=== PATIENT | male | born 1975 | race Hispanic/Latino ===

== ENCOUNTER 2019-06-22 03:06 | Emergency (ER) | payer SELFPAY ==
[~2019-06-22] VITALS: Ht 165.1 cm; Wt 56.7 kg
[2019-06-22] MEDS ORDERED: CLINDAMYCIN 600 MG/D5% WATER 50 ML IV ONE (04:44)
[2019-06-22] MEDS ORDERED: TETANUS/DIPHTHERIA TOXOID [ADULT] 0.5 ML VIAL IM ONE (04:45)
[2019-06-22] MEDS ORDERED: SODIUM CHLORIDE 0.9% 1000ML 1,000 ML IV ONE (04:47)
[2019-06-22 04:52] LABS: BASOPHILS % (AUTO) 1.1 % (0.0-5.0); EOSINOPHILS % (AUTO) 0.6 % (0.0-8.0); HEMATOCRIT 38.8 % (42-54); LYMPHOCYTES % (AUTO) 19.5 % (21.0-51.0); MEAN CORPUSCULAR HEMOGLOBIN 32.2 pg (27.0-33.0); MEAN CORPUSCULAR HGB CONC 35.2 g/dL (32.0-36.0); MEAN CORPUSCULAR VOLUME 91.5 fL (79-99); MONOCYTES % (AUTO) 9.2 % (3.0-13.0); NEUTROPHILS % (AUTO) 69.6 % (40.0-77.0); NUCLEATED RED BLOOD CELLS 0.2 % (0.0-0.19); PLATELET COUNT (AUTO) 267 K/uL (130-400); RED BLOOD CELL COUNT(AUTO) 4.24 MIL/uL (4.50-6.20); RED CELL DISTRIBUTION WIDTH 13.6 % (11.0-15.5)
[2019-06-22 05:15] LABS: CREATININE 0.6 mg/dL (0.5-1.5); POTASSIUM 3.5 mmol/L (3.5-5.1)
[2019-06-22] MEDS ORDERED: RABIES VACC, HUMAN DIPLOID/PF 2.5 UNIT ML IM SCH (09:15)
== END 2019-06-22 10:42 | disposition home or self-care (01) ==
LOC: EDH 03:06
DX: S41.132A Puncture wound without foreign body of left upper arm, initial encounter (principal); F10.129 Alcohol abuse with intoxication, unspecified; I10 Essential (primary) hypertension; Z72.0 Tobacco use; W54.0XXA Bitten by dog, initial encounter; Y93.89 Activity, other specified; Y92.488 Other paved roadways as the place of occurrence of the external cause; Y99.8 Other external cause status; Y90.9 Presence of alcohol in blood, level not specified
CPT/HCPCS: 36415; 73060; 80048; 85025; 90471; 90472; 90714; 96365; 99285; G0480; J3490; J7030

== ENCOUNTER 2020-10-22 16:08 | Inpatient (IN) | payer OTHER ==
[~2020-10-22] VITALS: Ht 167.6 cm; Wt 69.7 kg
[2020-10-22] MEDS ORDERED: FUROSEMIDE 10 MG/ML 4ML VIAL ONE (16:41)
[2020-10-22] MEDS ORDERED: ALBUTEROL INHALER 90MCG/INH IH ONE (16:41)
[2020-10-22 16:42] LABS: BASOPHILS % (AUTO) 0.4 % (0.0-5.0); EOSINOPHILS % (AUTO) 0.2 % (0.0-8.0); HEMATOCRIT 38.4 % (42-54); LYMPHOCYTES % (AUTO) 10.3 % (21.0-51.0); MEAN CORPUSCULAR HGB CONC 34.6 g/dL (32.0-36.0); MEAN CORPUSCULAR VOLUME 86.5 fL (79-99); MONOCYTES % (AUTO) 6.8 % (3.0-13.0); NEUTROPHILS % (AUTO) 81.4 % (40.0-77.0); PLATELET COUNT (AUTO) 256 K/uL (130-400); RED BLOOD CELL COUNT(AUTO) 4.44 MIL/uL (4.50-6.20); RED CELL DISTRIBUTION WIDTH 13.8 % (11.0-15.5); WHITE BLOOD COUNT (AUTO) 9.6 K/uL (4.8-10.8)
[2020-10-22 16:53] LABS: CREATININE 1.8 mg/dL (0.5-1.5); POTASSIUM 3.5 mmol/L (3.5-5.1)
[2020-10-22 16:54] LABS: INR 1.54 (0.85-1.15); PROTHROMBIN TIME 16.1 SEC (9.6-11.6)
[2020-10-22 16:55] LABS: PARTIAL THROMBOPLASTIN TIME 25.1 SEC (26.3-35.5)
[2020-10-22 17:02] LABS: ALBUMIN 3.1 g/dL (3.5-5.0); BILIRUBIN,TOTAL 1.5 mg/dL (0.2-1.0); CRP QUANTITATIVE 31.3 mg/L (0.00-9.0); TOTAL PROTEIN, SERUM 7.1 g/dL (6.0-8.3)
[2020-10-22 17:28] LABS: B-TYPE NATRIURETIC PEPTIDE 2000 pg/mL (0-100)
[2020-10-22 17:32] LABS: APPEARANCE,URINE Clear (CLEAR); BILIRUBIN,URINE Negative (NEGATIVE); COLOR,URINE Yellow (YELLOW); GLUCOSE, URINE (UA) Negative (NEGATIVE); KETONES,URINE Negative (NEGATIVE); LEUKOCYTE ESTERASE ,URINE Negative (NEGATIVE); NITRATE,URINE Negative (NEGATIVE); OCCULT BLOOD,URINE Negative (NEGATIVE); PH,URINE 5.5 (5.0-8.0); PROTEIN,URINE Trace mg/dL (NEGATIVE)
[2020-10-22 17:40] LABS: BACTERIA,URINE None Seen /HPF (None Seen); RBC,URINE 0-1 /HPF (0-1); SQUAMOUS EPITHELIAL CELL,UR 0-2 /HPF (0-2); WBC,URINE 0-1 /HPF (0-1)
[2020-10-22 17:41] LABS: MUCUS,URINE Few LPF (None Seen)
[2020-10-22 19:04] LABS: AMPHET/METH SCREEN,URINE NEGATIVE (NEGATIVE); BARBITURATE SCREEN, URINE NEGATIVE (NEGATIVE); BENZODIAZEPINES SCREEN,URINE NEGATIVE (NEGATIVE); CANNABINOID SCREEN,URINE NEGATIVE (NEGATIVE); COCAINE SCREEN,URINE POSITIVE (NEGATIVE); OPIATE SCREEN,URINE NEGATIVE (NEGATIVE); PHENCYCLIDINE SCREEN,URINE NEGATIVE (NEGATIVE)
[2020-10-22] MEDS ORDERED: ACETAMINOPHEN 325 MG TAB PO PRN ×2 (20:30)
[2020-10-22] MEDS ORDERED: LACTULOSE 20 GM/30 ML UDCUP PO PRN (20:30)
[2020-10-22] MEDS ORDERED: DiphenhydrAMINE HCL 50 MG/ML VIAL IV PRN (20:30)
[2020-10-22] MEDS ORDERED: NITROGLYCERIN 0.4 MG SL TAB SL PRN (20:30)
[2020-10-22] MEDS ORDERED: DIPHENHYDRAMINE HCL 25 MG CAPSULE PO PRN (20:30)
[2020-10-22] MEDS ORDERED: ONDANSETRON HCL 4 MG/2 ML VIAL IV PRN (20:30)
[2020-10-22] MEDS ORDERED: GUAIFENESIN-DM 200/20 MG 10 ML PO PRN (20:30)
[2020-10-22] MEDS ORDERED: MAG HYDROX/AL HYDROX/SIMETH ES 30 ML SUSP UDCUP PO PRN (20:30)
[2020-10-22] MEDS ORDERED: METOPROLOL TARTRATE 25 MG TAB PO SCH (21:00)
[2020-10-22] MEDS: FAMOTIDINE 20MG TAB 20 MG TAB PO SCH (21:00)
[2020-10-22] MEDS: FUROSEMIDE 10 MG/ML 4ML VIAL IVP SCH (21:00)
[2020-10-22] MEDS ORDERED: METOPROLOL TARTRATE 25 MG TAB ONE (21:36)
[2020-10-22] MEDS ORDERED: FAMOTIDINE 20MG TAB 20 MG TAB ONE (21:36)
[2020-10-22] MEDS ORDERED: CEFTRIAXONE SODIUM 1 GM ONE (21:36)
[2020-10-22] MEDS ORDERED: PHARMACY COMMUNICATION MISC PRN (22:00)
[2020-10-22] MEDS ORDERED: LORAZEPAM 2 MG/ML 1 ML VIAL IVP PRN ×2 (22:00)
[2020-10-22] MEDS: ASPIRIN 325MG EC TAB 325 MG TABLET.DR PO SCH (22:30)
[2020-10-23] MEDS ORDERED: FUROSEMIDE 10 MG/ML 4ML VIAL ONE (04:15)
[2020-10-23 04:32] LABS: HEMATOCRIT 39.4 % (42-54); MEAN CORPUSCULAR HGB CONC 33.5 g/dL (32.0-36.0); MEAN CORPUSCULAR VOLUME 86.6 fL (79-99); RED BLOOD CELL COUNT(AUTO) 4.55 MIL/uL (4.50-6.20); WHITE BLOOD COUNT (AUTO) 11.8 K/uL (4.8-10.8)
[2020-10-23 04:48] LABS: ALBUMIN 3.1 g/dL (3.5-5.0); BILIRUBIN,TOTAL 0.7 mg/dL (0.2-1.0); CREATININE 1.8 mg/dL (0.5-1.5); MAGNESIUM 4.1 mg/dL (1.80-2.40); PHOSPHORUS 3.1 mg/dL (2.5-4.9); POTASSIUM 3.3 mmol/L (3.5-5.1); TOTAL PROTEIN, SERUM 7.3 g/dL (6.0-8.3)
[2020-10-23 08:56] VITALS: BP 139/111
[2020-10-23] MEDS ORDERED: FOLI1 PO (09:17)
[2020-10-23] MEDS ORDERED: LOSA25TA41 PO (09:17)
[2020-10-23] MEDS ORDERED: CARV25TA PO (09:17)
[2020-10-23] MEDS ORDERED: FURO20TA4 PO (09:17)
[2020-10-23] MEDS ORDERED: SPIR25TA6 PO (09:17)
[2020-10-23] MEDS ORDERED: LABETALOL HCL 200 MG TABLET ONE (11:09)
[2020-10-23] MEDS: MULTIVITAMIN TABLET PO SCH (11:14)
[2020-10-23] MEDS: LABETALOL HCL 200 MG TABLET PO SCH (11:14)
[2020-10-23] MEDS: ENOXAPARIN SODIUM 40 MG/0.4 ML SYRINGE SQ SCH (11:15)
[2020-10-23] MEDS: FAMOTIDINE 20MG TAB 20 MG TAB PO SCH ×2 (11:15→19:58)
[2020-10-23] MEDS: THIAMINE HCL 100 MG/ML 2ML VIAL IV SCH (11:17)
[2020-10-23] MEDS: FOLIC ACID 1 MG TABLET PO SCH (11:18)
[2020-10-23] MEDS: ASPIRIN 325MG EC TAB 325 MG TABLET.DR PO SCH (11:18)
[2020-10-23] MEDS: FUROSEMIDE 10 MG/ML 4ML VIAL IVP SCH ×2 (11:18→19:57)
[2020-10-23 12:00] VITALS: BP 121/64
[2020-10-23] MEDS: CHLORDIAZEPOXIDE HCL 25 MG CAP PO PRN ×2 (14:30→18:42)
[2020-10-23 17:29] VITALS: BP 132/92
[2020-10-23] MEDS: CEFTRIAXONE SODIUM 1 GM IV SCH ×2 (19:58→20:04)
[2020-10-23 20:00] VITALS: BP 133/97
[2020-10-24] VITALS: BP 143/91
[2020-10-24 04:00] VITALS: BP 132/98
[2020-10-24 04:42] LABS: BASOPHILS % (AUTO) 0.7 % (0.0-5.0); EOSINOPHILS % (AUTO) 1.4 % (0.0-8.0); HEMATOCRIT 39.1 % (42-54); LYMPHOCYTES % (AUTO) 16.5 % (21.0-51.0); MEAN CORPUSCULAR HEMOGLOBIN 28.2 pg (27.0-33.0); MEAN CORPUSCULAR VOLUME 88.1 fL (79-99); MONOCYTES % (AUTO) 11.5 % (3.0-13.0); NEUTROPHILS % (AUTO) 69.1 % (40.0-77.0); PLATELET COUNT (AUTO) 240 K/uL (130-400); RED BLOOD CELL COUNT(AUTO) 4.44 MIL/uL (4.50-6.20); RED CELL DISTRIBUTION WIDTH 13.9 % (11.0-15.5); WHITE BLOOD COUNT (AUTO) 8.8 K/uL (4.8-10.8)
[2020-10-24 04:54] LABS: INR 1.37 (0.85-1.15); PROTHROMBIN TIME 14.5 SEC (9.6-11.6)
[2020-10-24 05:06] LABS: ALBUMIN 2.8 g/dL (3.5-5.0); BILIRUBIN,TOTAL 0.5 mg/dL (0.2-1.0); CREATININE 1.5 mg/dL (0.5-1.5); TOTAL PROTEIN, SERUM 6.7 g/dL (6.0-8.3)
[2020-10-24] MEDS ORDERED: POTASSIUM CHLORIDE 20 MEQ ERTAB PO PRN (05:15)
[2020-10-24] MEDS ORDERED: POTASSIUM CHLORIDE 10% ELIXIR 20 MEQ/15 ML UDCUP PO PRN (05:15)
[2020-10-24 08:00] VITALS: BP 133/102
[2020-10-24] MEDS ORDERED: POTASSIUM CHLORIDE 20 MEQ ERTAB PO SCH (08:15)
[2020-10-24] MEDS: THIAMINE HCL 100 MG/ML 2ML VIAL IV SCH (08:49)
[2020-10-24] MEDS: FUROSEMIDE 10 MG/ML 4ML VIAL IVP SCH (08:50)
[2020-10-24] MEDS: FOLIC ACID 1 MG TABLET PO SCH (08:50)
[2020-10-24] MEDS: MULTIVITAMIN TABLET PO SCH (08:50)
[2020-10-24] MEDS: ASPIRIN 325MG EC TAB 325 MG TABLET.DR PO SCH (08:50)
[2020-10-24] MEDS: FAMOTIDINE 20MG TAB 20 MG TAB PO SCH (08:51)
[2020-10-24] MEDS: LABETALOL HCL 200 MG TABLET PO SCH (08:51)
[2020-10-24] MEDS: ENOXAPARIN SODIUM 40 MG/0.4 ML SYRINGE SQ SCH (08:52)
[2020-10-24] MEDS: CHLORDIAZEPOXIDE HCL 25 MG CAP PO PRN (08:52)
[2020-10-24] MEDS ORDERED: MAGNESIUM 2GM PREMIX 50ML 50 ML IV SCH (09:00)
[2020-10-24 09:14] LABS: HEPATITIS A ANTIBODY IGM Negative (Negative); HEPATITIS B CORE IGM Negative (Negative); HEPATITIS Bs ANTIGEN SCREEN P Negative (Negative)
[2020-10-24 10:16] VITALS: BP 124/87
== END 2020-10-24 16:52 | disposition left against medical advice (07) | DRG 683 ==
LOC: EDH 16:08 → EDHIP 16:09 → 4AH 10-23 08:30
PROVIDERS: ADMIT Family Medicine; ATTEND Family Medicine
DX: N17.9 Acute kidney failure, unspecified (principal); B17.9 Acute viral hepatitis, unspecified; F10.139 Alcohol abuse with withdrawal, unspecified; F14.10 Cocaine abuse, uncomplicated; Z20.822 Contact with and (suspected) exposure to COVID-19; K70.30 Alcoholic cirrhosis of liver without ascites; I16.0 Hypertensive urgency; E87.8 Other disorders of electrolyte and fluid balance, not elsewhere classified; I11.0 Hypertensive heart disease with heart failure; I50.9 Heart failure, unspecified; K76.1 Chronic passive congestion of liver; K76.0 Fatty (change of) liver, not elsewhere classified; F19.10 Other psychoactive substance abuse, uncomplicated; F06.30 Mood disorder due to known physiological condition, unspecified; Z91.19 Patient's noncompliance with other medical treatment and regimen
CPT/HCPCS: 36415; 71045; 76705; 80053; 80074; 80305; 81001; 82550; 83690; 83735; 83880; 84100; 84484; 85025; 85027; 85610; 85730; 86140; 87426; 93005; G0378; J0696; J1650; J1940; J2060; J3411; U0003

== ENCOUNTER 2020-11-06 08:02 | Inpatient (IN) | payer OTHER ==
[~2020-11-06 08:02] MED LIST: CARV25TA PO; FOLI1 PO; FURO20TA4 PO; LOSA25TA41 PO; SPIR25TA6 PO
[2020-11-06 08:17] LABS: BASOPHILS % (AUTO) 0.2 % (0.0-5.0); EOSINOPHILS % (AUTO) 0.3 % (0.0-8.0); HEMATOCRIT 38.5 % (42-54); LYMPHOCYTES % (AUTO) 17.7 % (21.0-51.0); MEAN CORPUSCULAR HEMOGLOBIN 28.1 pg (27.0-33.0); MEAN CORPUSCULAR HGB CONC 31.9 g/dL (32.0-36.0); MEAN CORPUSCULAR VOLUME 88.1 fL (79-99); MONOCYTES % (AUTO) 6.9 % (3.0-13.0); NEUTROPHILS % (AUTO) 74.3 % (40.0-77.0); PLATELET COUNT (AUTO) 284 K/uL (130-400); RED BLOOD CELL COUNT(AUTO) 4.37 MIL/uL (4.50-6.20); RED CELL DISTRIBUTION WIDTH 14.9 % (11.0-15.5); WHITE BLOOD COUNT (AUTO) 9.6 K/uL (4.8-10.8)
[2020-11-06 08:29] LABS: INR 1.32 (0.85-1.15)
[2020-11-06 08:31] LABS: PARTIAL THROMBOPLASTIN TIME 24.4 SEC (26.3-35.5)
[2020-11-06 08:39] LABS: ALBUMIN 3.2 g/dL (3.5-5.0); BILIRUBIN,TOTAL 0.6 mg/dL (0.2-1.0); CREATININE 1.4 mg/dL (0.5-1.5); TOTAL PROTEIN, SERUM 7.3 g/dL (6.0-8.3)
[2020-11-06 08:41] LABS: B-TYPE NATRIURETIC PEPTIDE 2100 pg/mL (0-100)
[2020-11-06 08:43] LABS: POTASSIUM 2.9 mmol/L (3.5-5.1)
[2020-11-06] MEDS ORDERED: ONDANSETRON 4MG INJ ONE (09:38)
[2020-11-06] MEDS ORDERED: KCL 20 MEQ ERTAB PO ONE ×2 (09:39→15:48)
[2020-11-06] MEDS ORDERED: FUROSEMIDE 40MG VIAL ONE ×2 (09:39→15:49)
[2020-11-06 10:21] LABS: APPEARANCE,URINE Clear (CLEAR); BILIRUBIN,URINE Negative (NEGATIVE); COLOR,URINE Yellow (YELLOW); GLUCOSE, URINE (UA) Negative (NEGATIVE); KETONES,URINE Negative (NEGATIVE); LEUKOCYTE ESTERASE ,URINE Negative (NEGATIVE); NITRATE,URINE Negative (NEGATIVE); OCCULT BLOOD,URINE Negative (NEGATIVE); PH,URINE 5.5 (5.0-8.0); PROTEIN,URINE POS 1+ mg/dL (NEGATIVE); UROBILINOGEN,URINE 0.2 mg/dL (0.2-1.0)
[2020-11-06 10:27] LABS: AMPHET/METH SCREEN,URINE NEGATIVE (NEGATIVE); BACTERIA,URINE None Seen /HPF (None Seen); BARBITURATE SCREEN, URINE NEGATIVE (NEGATIVE); BENZODIAZEPINES SCREEN,URINE POSITIVE (NEGATIVE); CANNABINOID SCREEN,URINE NEGATIVE (NEGATIVE); COCAINE SCREEN,URINE POSITIVE (NEGATIVE); OPIATE SCREEN,URINE NEGATIVE (NEGATIVE); PHENCYCLIDINE SCREEN,URINE NEGATIVE (NEGATIVE); RBC,URINE None Seen /HPF (0-1); SQUAMOUS EPITHELIAL CELL,UR Rare /HPF (0-2); WBC,URINE 0-1 /HPF (0-1)
[2020-11-06] MEDS ORDERED: POTASSIUM CHLORIDE 20MEQ/100ML 100 ML IV PRN (12:00)
[2020-11-06] MEDS ORDERED: CHLORDIAZEPOXIDE HCL 25 MG CAP PO PRN (12:00)
[2020-11-06] MEDS ORDERED: PHARMACY COMMUNICATION MISC PRN (12:00)
[2020-11-06] MEDS ORDERED: POTASSIUM CHLORIDE 10% ELIXIR 20 MEQ/15 ML UDCUP PO PRN (12:00)
[2020-11-06] MEDS ORDERED: KCL 20 MEQ ERTAB PO PRN (12:00)
[2020-11-06] MEDS ORDERED: LORAZEPAM 2 MG/ML 1 ML VIAL IVP PRN (12:00)
[2020-11-06] MEDS: CEFTRIAXONE 1G VIAL IVP SCH (12:15)
[2020-11-06] MEDS ORDERED: ACETAMINOPHEN 325 MG TAB PO PRN (12:15)
[2020-11-06] MEDS ORDERED: LACTULOSE 20 GM/30 ML UDCUP PO PRN (12:15)
[2020-11-06] MEDS ORDERED: ONDANSETRON 4MG INJ IV PRN (12:15)
[2020-11-06 12:25] LABS: BASOPHILS % (AUTO) 0.5 % (0.0-5.0); EOSINOPHILS % (AUTO) 0.5 % (0.0-8.0); HEMATOCRIT 38.3 % (42-54); LYMPHOCYTES % (AUTO) 19.5 % (21.0-51.0); MEAN CORPUSCULAR HEMOGLOBIN 28.9 pg (27.0-33.0); MEAN CORPUSCULAR HGB CONC 32.9 g/dL (32.0-36.0); MEAN CORPUSCULAR VOLUME 87.8 fL (79-99); MONOCYTES % (AUTO) 6.8 % (3.0-13.0); PLATELET COUNT (AUTO) 284 K/uL (130-400); RED BLOOD CELL COUNT(AUTO) 4.36 MIL/uL (4.50-6.20); RED CELL DISTRIBUTION WIDTH 14.8 % (11.0-15.5); WHITE BLOOD COUNT (AUTO) 8.6 K/uL (4.8-10.8)
[2020-11-06 12:38] LABS: ALBUMIN 3.4 g/dL (3.5-5.0); BILIRUBIN,TOTAL 0.6 mg/dL (0.2-1.0); CREATININE 1.3 mg/dL (0.5-1.5); MAGNESIUM 1.8 mg/dL (1.80-2.40); PHOSPHORUS 3.5 mg/dL (2.5-4.9); POTASSIUM 3.3 mmol/L (3.5-5.1); TOTAL PROTEIN, SERUM 7.8 g/dL (6.0-8.3)
[2020-11-06] MEDS: NITROGLYCERIN 1GM OINT 1 INCH/1GM TD SCH ×2 (12:45→23:45)
[2020-11-06] MEDS: KCL 20 MEQ ERTAB PO SCH ×2 (14:00→23:44)
[2020-11-06] MEDS ORDERED: NITROGLYCERIN 1GM OINT 1 INCH/1GM TD ONE (15:49)
[2020-11-06] MEDS ORDERED: CEFTRIAXONE 1G VIAL ONE (15:49)
[2020-11-06] MEDS ORDERED: CHLORDIAZEPOXIDE HCL 25 MG CAP ONE (15:50)
[2020-11-06] MEDS: FUROSEMIDE 40MG VIAL IV SCH (17:00)
[2020-11-06] MEDS: FAMOTIDINE 20MG VIAL IV SCH (23:44)
[2020-11-06 23:57] VITALS: BP 137/97
[2020-11-07 04:00] VITALS: BP 133/96
[2020-11-07] MEDS: FUROSEMIDE 40MG VIAL IV SCH ×2 (04:55→16:16)
[2020-11-07] MEDS: NITROGLYCERIN 1GM OINT 1 INCH/1GM TD SCH ×4 (04:56→20:37)
[2020-11-07 08:00] VITALS: BP 144/106
[2020-11-07] MEDS: FOLIC ACID 1 MG TABLET PO SCH (09:56)
[2020-11-07] MEDS: FAMOTIDINE 20MG VIAL IV SCH ×2 (09:56→20:34)
[2020-11-07] MEDS: ENOXAPARIN SODIUM 30 MG/0.3 ML SQ SCH (09:56)
[2020-11-07] MEDS: KCL 20 MEQ ERTAB PO SCH ×3 (09:57→20:35)
[2020-11-07] MEDS: MULTIVITAMIN TABLET PO SCH (09:57)
[2020-11-07] MEDS: METOPROLOL TARTRATE 25 MG TAB PO SCH ×2 (10:39→20:34)
[2020-11-07 12:00] VITALS: BP 128/98
[2020-11-07] MEDS: CEFTRIAXONE 1G VIAL IVP SCH (13:24)
[2020-11-07 16:00] VITALS: BP 125/95
[2020-11-07 19:58] VITALS: BP 108/83
[2020-11-07 23:58] VITALS: BP 105/82
[2020-11-08 04:11] VITALS: BP 120/87
[2020-11-08] MEDS: NITROGLYCERIN 1GM OINT 1 INCH/1GM TD SCH ×2 (04:45→12:45)
[2020-11-08] MEDS: FUROSEMIDE 40MG VIAL IV SCH (05:19)
[2020-11-08 06:19] LABS: CREATININE 1.9 mg/dL (0.5-1.5)
[2020-11-08 08:00] VITALS: BP 141/106
[2020-11-08] MEDS: MULTIVITAMIN TABLET PO SCH (09:05)
[2020-11-08] MEDS: FAMOTIDINE 20MG VIAL IV SCH (09:05)
[2020-11-08] MEDS: ENOXAPARIN SODIUM 30 MG/0.3 ML SQ SCH (09:05)
[2020-11-08] MEDS: METOPROLOL TARTRATE 25 MG TAB PO SCH (09:06)
[2020-11-08] MEDS: FOLIC ACID 1 MG TABLET PO SCH (09:06)
[2020-11-08] MEDS: CEFTRIAXONE 1G VIAL IVP SCH (11:45)
[2020-11-08 12:05] VITALS: BP 108/77
[2020-11-08 16:00] VITALS: BP 125/96
[2020-11-08 19:18] VITALS: BP 132/82
[2020-11-09] MEDS ORDERED: FUROSEMIDE 40 MG TABLET PO SCH (09:00)
[2020-11-21] MEDS ORDERED: THIA100T78 PO (10:08)
[2020-11-21] MEDS ORDERED: CARV3.1262 PO (10:08)
[2020-11-21] MEDS ORDERED: FURO40TA7 PO (10:08)
[2020-11-21] MEDS ORDERED: SPIR25TA PO (10:08)
[2020-11-21] MEDS ORDERED: LISI2.5T13 PO (10:08)
[2020-11-21] MEDS ORDERED: ATOR20TA65 PO (10:08)
[2020-11-21] MEDS ORDERED: ASPI-1005 PO (10:08)
== END 2020-11-08 19:30 | disposition left against medical advice (07) | DRG 918 ==
LOC: EDH 08:02 → EDHIP 08:03 → 3BH 22:52
PROVIDERS: ADMIT Hospitalist; ATTEND Hospitalist
DX: T51.0X1A Toxic effect of ethanol, accidental (unintentional), initial encounter (principal); K70.30 Alcoholic cirrhosis of liver without ascites; E87.6 Hypokalemia; Z53.29 Procedure and treatment not carried out because of patient's decision for other reasons; F17.200 Nicotine dependence, unspecified, uncomplicated; I10 Essential (primary) hypertension; F14.10 Cocaine abuse, uncomplicated; F12.10 Cannabis abuse, uncomplicated; Y90.7 Blood alcohol level of 200-239 mg/100 ml; Z91.14 Patient's other noncompliance with medication regimen; Z91.19 Patient's noncompliance with other medical treatment and regimen; Y92.89 Other specified places as the place of occurrence of the external cause
CPT/HCPCS: 36415; 71045; 80048; 80053; 80305; 81001; 82550; 82948; 83605; 83690; 83735; 83880; 84100; 84145; 84484; 85025; 85610; 85730; 93005; 93306; 93356; G0378; J0696; J1650; J1940; J2060; J2405; J3490

== ENCOUNTER 2021-02-07 02:26 | Emergency (ER) | payer OTHER ==
[~2021-02-07] VITALS: Ht 165.1 cm; Wt 70.3 kg
[~2021-02-07 02:26] MED LIST changes: +ASPI-1005 PO; +ATOR20TA65 PO; -CARV25TA PO; +CARV3.1262 PO; -FURO20TA4 PO; +FURO40TA7 PO; +LISI2.5T2 PO; -LOSA25TA41 PO; +SPIR25TA PO; -SPIR25TA6 PO; +THIA100T78 PO
[2021-02-07 02:48] VITALS: BP 125/99
[2021-02-07 03:48] VITALS: BP 123/87
[2021-02-07] MEDS ORDERED: PANTOPRAZOLE 40 MG/VIAL IVP SCH (04:30)
[2021-02-07] MEDS ORDERED: ONDANSETRON 4MG INJ IVP ONE (04:30)
[2021-02-07] MEDS ORDERED: FUROSEMIDE 100MG VIAL IVP ONE (04:30)
[2021-02-07] MEDS ORDERED: FAMOTIDINE 20MG VIAL IV ONE (04:30)
[2021-02-07 04:54] LABS: APPEARANCE,URINE Clear (CLEAR); BILIRUBIN,URINE Small (NEGATIVE); COLOR,URINE Dark Yellow (YELLOW); GLUCOSE, URINE (UA) Negative (NEGATIVE); KETONES,URINE Negative (NEGATIVE); LEUKOCYTE ESTERASE ,URINE Small (NEGATIVE); NITRATE,URINE Negative (NEGATIVE); OCCULT BLOOD,URINE Negative (NEGATIVE); PH,URINE 5.5 (5.0-8.0); PROTEIN,URINE POS 2+ mg/dL (NEGATIVE)
[2021-02-07 05:01] LABS: AMPHET/METH SCREEN,URINE NEGATIVE (NEGATIVE); BARBITURATE SCREEN, URINE NEGATIVE (NEGATIVE); BENZODIAZEPINES SCREEN,URINE NEGATIVE (NEGATIVE); CANNABINOID SCREEN,URINE NEGATIVE (NEGATIVE); COCAINE SCREEN,URINE POSITIVE (NEGATIVE); OPIATE SCREEN,URINE NEGATIVE (NEGATIVE); PHENCYCLIDINE SCREEN,URINE NEGATIVE (NEGATIVE)
[2021-02-07] MEDS ORDERED: FUROSEMIDE 40MG VIAL ONE (05:05)
[2021-02-07 05:13] LABS: BACTERIA,URINE None Seen /HPF (None Seen); RBC,URINE 0-1 /HPF (0-1); SQUAMOUS EPITHELIAL CELL,UR Few /HPF (0-2)
[2021-02-07 05:50] LABS: BASOPHILS % (AUTO) 0.5 % (0.0-5.0); EOSINOPHILS % (AUTO) 0.8 % (0.0-8.0); HEMATOCRIT 48.9 % (42-54); LYMPHOCYTES % (AUTO) 23.6 % (21.0-51.0); MEAN CORPUSCULAR HEMOGLOBIN 25.3 pg (27.0-33.0); MEAN CORPUSCULAR HGB CONC 30.7 g/dL (32.0-36.0); MEAN CORPUSCULAR VOLUME 82.5 fL (79-99); MONOCYTES % (AUTO) 10.3 % (3.0-13.0); NEUTROPHILS % (AUTO) 64.3 % (40.0-77.0); PLATELET COUNT (AUTO) 282 K/uL (130-400); RED BLOOD CELL COUNT(AUTO) 5.93 MIL/uL (4.50-6.20); RED CELL DISTRIBUTION WIDTH 19.5 % (11.0-15.5); WHITE BLOOD COUNT (AUTO) 9.2 K/uL (4.8-10.8)
[2021-02-07 06:02] VITALS: BP 110/74
[2021-02-07 06:05] LABS: CARBON DIOXIDE 23 mmol/L (21-32); CHLORIDE 105 mmol/L (101-111); CREATININE 1.7 mg/dL (0.5-1.5); GLOMERULAR FILTR. RATE CALC 46 mL/min (>60); GLUCOSE,RANDOM 79 mg/dL (70-105); POTASSIUM 4.7 mmol/L (3.5-5.1); SODIUM SERUM 139 mmol/L (136-145); UREA NITROGEN, BLOOD 36 mg/dL (7-18)
[2021-02-07 06:09] LABS: ALANINE AMINOTRANSFERASE 33 U/L (12-78); ALBUMIN 3.6 g/dL (3.5-5.0); ALCOHOL, BLOOD < 3 mg/dL (0-10); ASPARTATE AMINOTRANSFERASE 39 U/L (10-37); BILIRUBIN,TOTAL 1.7 mg/dL (0.2-1.0); LIPASE 398 U/L (114-286); TOTAL PROTEIN, SERUM 9.1 g/dL (6.0-8.3)
[2021-02-07 06:31] LABS: B-TYPE NATRIURETIC PEPTIDE 3760 pg/mL (0-100)
== END 2021-02-07 06:57 | disposition home or self-care (01) ==
LOC: EDH 03:59
DX: I11.0 Hypertensive heart disease with heart failure (principal); I50.9 Heart failure, unspecified; F14.10 Cocaine abuse, uncomplicated; Z79.82 Long term (current) use of aspirin; Z79.899 Other long term (current) drug therapy
CPT/HCPCS: 36415; 71045; 80053; 80305; 81001; 83690; 83880; 84484; 85025; 93005 ×2; 96374; 96375 ×2; 99285; C9113; J1940 ×2; J2405; J3490

== ENCOUNTER 2021-02-25 23:58 | Inpatient (IN) | payer OTHER ==
[~2021-02-25] VITALS: Ht 165.1 cm; Wt 67.8 kg
[2021-02-26 00:16] VITALS: BP 145/96
[2021-02-26 01:18] LABS: APPEARANCE,URINE Clear (CLEAR); BILIRUBIN,URINE Negative (NEGATIVE); COLOR,URINE Dark Yellow (YELLOW); GLUCOSE, URINE (UA) Negative (NEGATIVE); KETONES,URINE Negative (NEGATIVE); LEUKOCYTE ESTERASE ,URINE Negative (NEGATIVE); NITRATE,URINE Negative (NEGATIVE); OCCULT BLOOD,URINE Negative (NEGATIVE); PH,URINE 5.5 (5.0-8.0); PROTEIN,URINE POS 2+ mg/dL (NEGATIVE)
[2021-02-26 01:52] LABS: BACTERIA,URINE None Seen /HPF (None Seen); RBC,URINE None Seen /HPF (0-1); WBC,URINE 0-1 /HPF (0-1)
[2021-02-26 01:53] LABS: SQUAMOUS EPITHELIAL CELL,UR Rare /HPF (0-2)
[2021-02-26] MEDS ORDERED: FUROSEMIDE 40MG VIAL IV ONE (02:30)
[2021-02-26 03:04] LABS: AMPHET/METH SCREEN,URINE NEGATIVE (NEGATIVE); BARBITURATE SCREEN, URINE NEGATIVE (NEGATIVE); BENZODIAZEPINES SCREEN,URINE NEGATIVE (NEGATIVE); CANNABINOID SCREEN,URINE NEGATIVE (NEGATIVE); COCAINE SCREEN,URINE POSITIVE (NEGATIVE); OPIATE SCREEN,URINE NEGATIVE (NEGATIVE); PHENCYCLIDINE SCREEN,URINE NEGATIVE (NEGATIVE)
[2021-02-26 04:56] LABS: BASOPHILS % (AUTO) 0.5 % (0.0-5.0); EOSINOPHILS % (AUTO) 0.7 % (0.0-8.0); HEMATOCRIT 43.8 % (42-54); LYMPHOCYTES % (AUTO) 13.9 % (21.0-51.0); MEAN CORPUSCULAR HEMOGLOBIN 24.8 pg (27.0-33.0); MEAN CORPUSCULAR HGB CONC 30.1 g/dL (32.0-36.0); MEAN CORPUSCULAR VOLUME 82.2 fL (79-99); MONOCYTES % (AUTO) 10.4 % (3.0-13.0); NEUTROPHILS % (AUTO) 73.3 % (40.0-77.0); PLATELET COUNT (AUTO) 343 K/uL (130-400); RED BLOOD CELL COUNT(AUTO) 5.33 MIL/uL (4.50-6.20); WHITE BLOOD COUNT (AUTO) 10.4 K/uL (4.8-10.8)
[2021-02-26 05:10] LABS: CARBON DIOXIDE 22 mmol/L (21-32); CHLORIDE 104 mmol/L (101-111); CREATININE 1.3 mg/dL (0.5-1.5); GLOMERULAR FILTR. RATE CALC 63 mL/min (>60); GLUCOSE,RANDOM 84 mg/dL (70-105); SODIUM SERUM 136 mmol/L (136-145); UREA NITROGEN, BLOOD 30 mg/dL (7-18)
[2021-02-26 05:11] LABS: ALANINE AMINOTRANSFERASE 22 U/L (12-78); ALBUMIN 3.4 g/dL (3.5-5.0); ALCOHOL, BLOOD < 3 mg/dL (0-10); AMYLASE 121 U/L (25-115); ASPARTATE AMINOTRANSFERASE 35 U/L (10-37); BILIRUBIN,TOTAL 1.6 mg/dL (0.2-1.0); CREATINE KINASE, TOTAL 50 U/L (21-232); INR 1.39 (0.85-1.15); LIPASE 634 U/L (114-286); PROTHROMBIN TIME 14.7 SEC (9.6-11.6); TOTAL PROTEIN, SERUM 8.6 g/dL (6.0-8.3)
[2021-02-26 05:13] LABS: PARTIAL THROMBOPLASTIN TIME 26.8 SEC (26.3-35.5)
[2021-02-26 05:32] LABS: B-TYPE NATRIURETIC PEPTIDE 2590 pg/mL (0-100)
[2021-02-26] MEDS ORDERED: FUROSEMIDE 40MG VIAL IV SCH (07:30)
[2021-02-26] MEDS ORDERED: ONDANSETRON 4MG INJ IV PRN (07:30)
[2021-02-26] MEDS ORDERED: LACTULOSE 20 GM/30 ML UDCUP PO PRN (07:30)
[2021-02-26] MEDS ORDERED: KETOROLAC 15MG/ML VIAL (15MG/ML) IV ONE (09:00)
[2021-02-26] MEDS: SPIRONOLACTONE 25 MG TAB PO SCH (09:13)
[2021-02-26 10:00] VITALS: BP 124/74
[2021-02-26] MEDS: FUROSEMIDE 40MG VIAL IV SCH (15:19)
[2021-02-26 17:44] VITALS: BP 145/65
[2021-02-26 19:35] VITALS: BP 116/86
[2021-02-26] MEDS ORDERED: SPIR25TA6 PO (21:25)
[2021-02-26] MEDS ORDERED: CYAN250014 PO (21:25)
[2021-02-26] MEDS ORDERED: MULT-1082 PO (21:25)
[2021-02-26] MEDS ORDERED: FAMO40TA7 PO (21:25)
[2021-02-26] MEDS ORDERED: TRAZODONE HCL 50 MG TAB PO SCH (22:00)
[2021-02-26 22:03] VITALS: BP 119/91
[2021-02-27] VITALS (7 sets, daily range): BP systolic 109–133; BP diastolic 71–106
[2021-02-27] MEDS: FUROSEMIDE 40MG VIAL IV SCH ×2 (02:46→15:04)
[2021-02-27] MEDS ORDERED: OSEL75 PO (03:19)
[2021-02-27] MEDS ORDERED: AMOX1TAB16 PO (03:19)
[2021-02-27] MEDS ORDERED: FAMO20TA8 PO (03:19)
[2021-02-27] MEDS ORDERED: SPIR25TA6 PO (03:19)
[2021-02-27 05:25] LABS: BASOPHILS % (AUTO) 0.7 % (0.0-5.0); EOSINOPHILS % (AUTO) 0.3 % (0.0-8.0); LYMPHOCYTES % (AUTO) 16.9 % (21.0-51.0); MEAN CORPUSCULAR HEMOGLOBIN 25.1 pg (27.0-33.0); MEAN CORPUSCULAR HGB CONC 31.5 g/dL (32.0-36.0); MEAN CORPUSCULAR VOLUME 79.6 fL (79-99); MONOCYTES % (AUTO) 11.7 % (3.0-13.0); NEUTROPHILS % (AUTO) 69.4 % (40.0-77.0); PLATELET COUNT (AUTO) 284 K/uL (130-400); RED CELL DISTRIBUTION WIDTH 18.4 % (11.0-15.5); WHITE BLOOD COUNT (AUTO) 8.9 K/uL (4.8-10.8)
[2021-02-27 05:34] LABS: CREATININE 1.5 mg/dL (0.5-1.5); POTASSIUM 3.9 mmol/L (3.5-5.1)
[2021-02-27 05:49] LABS: B-TYPE NATRIURETIC PEPTIDE 2240 pg/mL (0-100)
[2021-02-27] MEDS: SPIRONOLACTONE 25 MG TAB PO SCH (08:42)
[2021-02-28 00:11] VITALS: BP 123/92
[2021-02-28] MEDS: FUROSEMIDE 40MG VIAL IV SCH ×2 (03:05→15:00)
[2021-02-28 04:00] VITALS: BP 131/90
[2021-02-28 04:41] LABS: CREATININE 1.4 mg/dL (0.5-1.5); POTASSIUM 3.9 mmol/L (3.5-5.1)
[2021-02-28 04:42] LABS: BASOPHILS % (AUTO) 0.4 % (0.0-5.0); EOSINOPHILS % (AUTO) 0.7 % (0.0-8.0); HEMATOCRIT 40.5 % (42-54); LYMPHOCYTES % (AUTO) 15.8 % (21.0-51.0); MEAN CORPUSCULAR HEMOGLOBIN 25.4 pg (27.0-33.0); MEAN CORPUSCULAR HGB CONC 31.9 g/dL (32.0-36.0); MEAN CORPUSCULAR VOLUME 79.7 fL (79-99); MONOCYTES % (AUTO) 9.4 % (3.0-13.0); NEUTROPHILS % (AUTO) 73.1 % (40.0-77.0); PLATELET COUNT (AUTO) 343 K/uL (130-400); RED BLOOD CELL COUNT(AUTO) 5.08 MIL/uL (4.50-6.20); RED CELL DISTRIBUTION WIDTH 19.1 % (11.0-15.5); WHITE BLOOD COUNT (AUTO) 9.1 K/uL (4.8-10.8)
[2021-02-28 04:59] LABS: B-TYPE NATRIURETIC PEPTIDE 2650 pg/mL (0-100)
[2021-02-28 07:39] LABS: CREATINE KINASE, TOTAL 41 U/L (21-232); MYOGLOBIN 48 ng/mL (10-92); TROPONIN I < 0.04 ng/mL (0.00-0.06)
[2021-02-28 08:17] VITALS: BP 137/98
[2021-02-28] MEDS ORDERED: CARVEDILOL 3.125 MG TABLET PO SCH (09:00)
[2021-02-28] MEDS ORDERED: FAMOTIDINE 20MG TAB PO SCH (09:00)
[2021-02-28] MEDS ORDERED: LISINOPRIL 2.5 MG TABLET PO SCH (09:00)
[2021-02-28] MEDS: SPIRONOLACTONE 25 MG TAB PO SCH (10:27)
[2021-02-28 11:33] VITALS: BP 125/82
[2021-02-28] MEDS ORDERED: LACT10SO9 PO (12:46)
== END 2021-02-28 17:23 | disposition home or self-care (01) | DRG 292 ==
LOC: EDH 23:58 → EDHIP 23:59 → OBSVTOIN 23:59 → 4AH 02-27 03:00 → 4DH 02-27 15:58
PROVIDERS: ADMIT Hospitalist; ATTEND Hospitalist
DX: I11.0 Hypertensive heart disease with heart failure (principal); E44.0 Moderate protein-calorie malnutrition; I50.23 Acute on chronic systolic (congestive) heart failure; F14.10 Cocaine abuse, uncomplicated; K70.30 Alcoholic cirrhosis of liver without ascites; E87.70 Fluid overload, unspecified; F41.9 Anxiety disorder, unspecified; I25.10 Atherosclerotic heart disease of native coronary artery without angina pectoris; Z20.822 Contact with and (suspected) exposure to COVID-19; Z68.29 Body mass index [BMI] 29.0-29.9, adult
CPT/HCPCS: 36415; 71045; 76700; 80048; 80053; 80305; 81001; 82140; 82150; 82550; 83690; 83735; 83874; 83880; 84484; 85025; 85378; 85610; 85730; 87635; 87804; 93005; C9803; G0378; J1885; J1940; J2405

== ENCOUNTER 2021-05-07 21:48 | Inpatient (IN) | payer OTHER ==
[~2021-05-07] VITALS: Ht 167.6 cm; Wt 67.8 kg
[~2021-05-07 21:48] MED LIST changes: -ASPI-1005 PO; -ATOR20TA65 PO; +CYAN250014 PO; +FAMO20TA8 PO; +LACT10SO9 PO; +LISI2.5T13 PO; -LISI2.5T2 PO; +MULT-1082 PO; -SPIR25TA PO; +SPIR25TA6 PO; -THIA100T78 PO
[2021-05-07] MEDS ORDERED: LIDOCAINE HCL 2% VISCOUS 15 ML UDCUP PO ONE (22:30)
[2021-05-07] MEDS ORDERED: MAG/ALUM/SIMETH 30 ML UDCUP PO ONE (22:30)
[2021-05-07 22:38] LABS: BASOPHILS % (AUTO) 0.3 % (0.0-5.0); EOSINOPHILS % (AUTO) 0.1 % (0.0-8.0); HEMATOCRIT 48.8 % (42-54); LYMPHOCYTES % (AUTO) 12.3 % (21.0-51.0); MEAN CORPUSCULAR HEMOGLOBIN 27.4 pg (27.0-33.0); MEAN CORPUSCULAR HGB CONC 31.1 g/dL (32.0-36.0); MEAN CORPUSCULAR VOLUME 88.1 fL (79-99); MONOCYTES % (AUTO) 9.2 % (3.0-13.0); NEUTROPHILS % (AUTO) 77.3 % (40.0-77.0); PLATELET COUNT (AUTO) 265 K/uL (130-400); RED BLOOD CELL COUNT(AUTO) 5.54 MIL/uL (4.50-6.20); RED CELL DISTRIBUTION WIDTH 23.9 % (11.0-15.5); WHITE BLOOD COUNT (AUTO) 11.8 K/uL (4.8-10.8)
[2021-05-07 22:45] LABS: CARBON DIOXIDE 18 mmol/L (21-32); CHLORIDE 106 mmol/L (101-111); CREATININE 2.1 mg/dL (0.5-1.5); GLOMERULAR FILTR. RATE CALC 36 mL/min (>60); GLUCOSE,RANDOM 101 mg/dL (70-105); POTASSIUM 5.4 mmol/L (3.5-5.1); SODIUM SERUM 137 mmol/L (136-145); UREA NITROGEN, BLOOD 40 mg/dL (7-18)
[2021-05-07 22:48] LABS: ALANINE AMINOTRANSFERASE 42 U/L (12-78); ALBUMIN 3.2 g/dL (3.5-5.0); ALCOHOL, BLOOD < 3 mg/dL (0-10); ASPARTATE AMINOTRANSFERASE 63 U/L (10-37); BILIRUBIN,TOTAL 1.5 mg/dL (0.2-1.0); TOTAL PROTEIN, SERUM 7.7 g/dL (6.0-8.3)
[2021-05-07 22:58] LABS: B-TYPE NATRIURETIC PEPTIDE 2870 pg/mL (0-100)
[2021-05-07] MEDS ORDERED: NITROGLYCERIN 1GM OINT 1 INCH/1GM TD ONE ×2 (23:00→23:03)
[2021-05-07] MEDS ORDERED: ASPIRIN 81MG CHEW TAB PO ONE (23:00)
[2021-05-07 23:06] LABS: AMPHET/METH SCREEN,URINE NEGATIVE (NEGATIVE); BARBITURATE SCREEN, URINE NEGATIVE (NEGATIVE); BENZODIAZEPINES SCREEN,URINE NEGATIVE (NEGATIVE); CANNABINOID SCREEN,URINE NEGATIVE (NEGATIVE); COCAINE SCREEN,URINE POSITIVE (NEGATIVE); OPIATE SCREEN,URINE NEGATIVE (NEGATIVE); PHENCYCLIDINE SCREEN,URINE NEGATIVE (NEGATIVE)
[2021-05-07] MEDS ORDERED: HEPARIN 25,000 UNITS/250ML D5W 250 ML IV SCH (23:30)
[2021-05-07] MEDS ORDERED: CLOPIDOGREL 300MG TAB PO ONE (23:30)
[2021-05-07] MEDS: NITROGLYCERIN 1GM OINT 1 INCH/1GM TD SCH (23:30)
[2021-05-07] MEDS ORDERED: FUROSEMIDE 40MG VIAL IVP SCH (23:30)
[2021-05-07 23:47] LABS: INR 2.01 (0.85-1.15); PROTHROMBIN TIME 20.6 SEC (9.6-11.6)
[2021-05-07 23:49] LABS: PARTIAL THROMBOPLASTIN TIME 30.5 SEC (26.3-35.5)
[2021-05-08 00:59] LABS: INR 2.1 (0.85-1.15); PROTHROMBIN TIME 21.4 SEC (9.6-11.6)
[2021-05-08 01:01] LABS: PARTIAL THROMBOPLASTIN TIME 29.2 SEC (26.3-35.5)
[2021-05-08] MEDS ORDERED: HEPARIN 5,000 UNIT VIAL ONE (01:05)
[2021-05-08 04:00] VITALS: BP 109/81
[2021-05-08] MEDS: NITROGLYCERIN 1GM OINT 1 INCH/1GM TD SCH (06:34)
[2021-05-08 07:02] LABS: BASOPHILS % (AUTO) 0.6 % (0.0-5.0); EOSINOPHILS % (AUTO) 0.2 % (0.0-8.0); HEMATOCRIT 42.8 % (42-54); LYMPHOCYTES % (AUTO) 18.4 % (21.0-51.0); MEAN CORPUSCULAR HEMOGLOBIN 26.8 pg (27.0-33.0); MEAN CORPUSCULAR HGB CONC 31.3 g/dL (32.0-36.0); MEAN CORPUSCULAR VOLUME 85.6 fL (79-99); MONOCYTES % (AUTO) 12.7 % (3.0-13.0); NEUTROPHILS % (AUTO) 67.3 % (40.0-77.0); PLATELET COUNT (AUTO) 236 K/uL (130-400); RED CELL DISTRIBUTION WIDTH 23.4 % (11.0-15.5); WHITE BLOOD COUNT (AUTO) 8.3 K/uL (4.8-10.8)
[2021-05-08 07:18] LABS: INR 2.24 (0.85-1.15); PROTHROMBIN TIME 22.7 SEC (9.6-11.6)
[2021-05-08 07:20] LABS: CREATININE 1.9 mg/dL (0.5-1.5); MAGNESIUM 2.1 mg/dL (1.80-2.40); PARTIAL THROMBOPLASTIN TIME 68.9 SEC (26.3-35.5); PHOSPHORUS 4.4 mg/dL (2.5-4.9); POTASSIUM 4.8 mmol/L (3.5-5.1)
[2021-05-08 08:22] VITALS: BP 103/80
[2021-05-08] MEDS ORDERED: COMPOUND IV REFRIGERATED 1 EACH IVSOLN MISC PRN (08:30)
[2021-05-08] MEDS ORDERED: PHARMACY COMMUNICATION MISC PRN (08:30)
[2021-05-08] MEDS ORDERED: LORAZEPAM 2 MG/ML 1 ML VIAL IVP PRN (08:30)
[2021-05-08] MEDS ORDERED: LISINOPRIL 10 MG TABLET PO SCH (09:00)
[2021-05-08] MEDS ORDERED: ASPIRIN 81 MG EC TAB PO SCH (09:00)
[2021-05-08] MEDS ORDERED: FOLIC ACID 5 MG/ML VIAL IV SCH (09:00)
[2021-05-08] MEDS ORDERED: FAMOTIDINE 20MG VIAL IV SCH (09:00)
[2021-05-08] MEDS ORDERED: CLOPIDOGREL 75MG TAB PO SCH (09:00)
[2021-05-08] MEDS ORDERED: THIAMINE HCL 100 MG/ML 2ML VIAL IVP SCH (09:00)
[2021-05-08 11:09] VITALS: BP 109/81
[2021-05-08] MEDS ORDERED: REGADENOSON 0.4 MG/5 ML PF SYG IVP SCH (11:30)
[2021-05-08 13:10] LABS: BASOPHILS % (AUTO) 0.5 % (0.0-5.0); EOSINOPHILS % (AUTO) 0.2 % (0.0-8.0); HEMATOCRIT 42.3 % (42-54); LYMPHOCYTES % (AUTO) 13.7 % (21.0-51.0); MEAN CORPUSCULAR HEMOGLOBIN 27.6 pg (27.0-33.0); MEAN CORPUSCULAR HGB CONC 31.9 g/dL (32.0-36.0); MEAN CORPUSCULAR VOLUME 86.5 fL (79-99); MONOCYTES % (AUTO) 11.9 % (3.0-13.0); NEUTROPHILS % (AUTO) 73.1 % (40.0-77.0); NUCLEATED RED BLOOD CELLS 0.2 % (0.0-0.19); PLATELET COUNT (AUTO) 239 K/uL (130-400); RED BLOOD CELL COUNT(AUTO) 4.89 MIL/uL (4.50-6.20); RED CELL DISTRIBUTION WIDTH 23.6 % (11.0-15.5); WHITE BLOOD COUNT (AUTO) 8.4 K/uL (4.8-10.8)
[2021-05-08 16:47] VITALS: BP 118/92
[2021-05-08 18:07] LABS: BASOPHILS % (AUTO) 0.4 % (0.0-5.0); EOSINOPHILS % (AUTO) 0.1 % (0.0-8.0); HEMATOCRIT 46.4 % (42-54); LYMPHOCYTES % (AUTO) 10.9 % (21.0-51.0); MEAN CORPUSCULAR HEMOGLOBIN 27.3 pg (27.0-33.0); MEAN CORPUSCULAR HGB CONC 31.7 g/dL (32.0-36.0); MEAN CORPUSCULAR VOLUME 86.2 fL (79-99); MONOCYTES % (AUTO) 8.6 % (3.0-13.0); NEUTROPHILS % (AUTO) 79.6 % (40.0-77.0); PLATELET COUNT (AUTO) 276 K/uL (130-400); RED BLOOD CELL COUNT(AUTO) 5.38 MIL/uL (4.50-6.20); RED CELL DISTRIBUTION WIDTH 23.7 % (11.0-15.5)
[2021-05-08 18:21] LABS: CREATININE 1.9 mg/dL (0.5-1.5); POTASSIUM 4.1 mmol/L (3.5-5.1)
== END 2021-05-08 18:30 | disposition left against medical advice (07) | DRG 280 ==
LOC: EDH 21:48 → EDHIP 21:49 → 4BH 05-08 04:06
PROVIDERS: ADMIT Internal Medicine; ATTEND Internal Medicine
DX: I21.4 Non-ST elevation (NSTEMI) myocardial infarction (principal); I50.43 Acute on chronic combined systolic (congestive) and diastolic (congestive) heart failure; N17.9 Acute kidney failure, unspecified; I13.0 Hypertensive heart and chronic kidney disease with heart failure and stage 1 through stage 4 chronic kidney disease, or unspecified chronic kidney disease; I42.6 Alcoholic cardiomyopathy; E87.5 Hyperkalemia; N18.9 Chronic kidney disease, unspecified; D72.829 Elevated white blood cell count, unspecified; K70.30 Alcoholic cirrhosis of liver without ascites; F14.10 Cocaine abuse, uncomplicated; E78.5 Hyperlipidemia, unspecified; F10.20 Alcohol dependence, uncomplicated; Z79.899 Other long term (current) drug therapy; Z87.891 Personal history of nicotine dependence; Z91.14 Patient's other noncompliance with medication regimen; Z83.3 Family history of diabetes mellitus; Z82.49 Family history of ischemic heart disease and other diseases of the circulatory system; Z83.79 Family history of other diseases of the digestive system; Z84.1 Family history of disorders of kidney and ureter
CPT/HCPCS: 36415; 71045; 78452; 80048; 80053; 80305; 83735; 83880; 84100; 84484; 85025; 85610; 85730; 86850; 86900; 86901; 93005; 93017; 96374; 99291; A9500; G0378; J1644; J2785; J3411; J3490

== ENCOUNTER 2021-05-13 05:19 | Inpatient (IN) | payer SELFPAY ==
[2021-05-13] MEDS ORDERED: FUROSEMIDE 40MG VIAL IV ONE (06:00)
[2021-05-13 07:21] LABS: BASOPHILS % (AUTO) 0.6 % (0.0-5.0); EOSINOPHILS % (AUTO) 1.3 % (0.0-8.0); HEMATOCRIT 40.5 % (42-54); LYMPHOCYTES % (AUTO) 14.2 % (21.0-51.0); MEAN CORPUSCULAR HEMOGLOBIN 27.7 pg (27.0-33.0); MEAN CORPUSCULAR HGB CONC 30.9 g/dL (32.0-36.0); MEAN CORPUSCULAR VOLUME 89.6 fL (79-99); MONOCYTES % (AUTO) 11.3 % (3.0-13.0); NEUTROPHILS % (AUTO) 71.9 % (40.0-77.0); PLATELET COUNT (AUTO) 221 K/uL (130-400); RED BLOOD CELL COUNT(AUTO) 4.52 MIL/uL (4.50-6.20); RED CELL DISTRIBUTION WIDTH 23.7 % (11.0-15.5); WHITE BLOOD COUNT (AUTO) 9.9 K/uL (4.8-10.8)
[2021-05-13 07:24] LABS: APPEARANCE,URINE Clear (CLEAR); BILIRUBIN,URINE Negative (NEGATIVE); COLOR,URINE Yellow (YELLOW); GLUCOSE, URINE (UA) Negative (NEGATIVE); KETONES,URINE Negative (NEGATIVE); LEUKOCYTE ESTERASE ,URINE Negative (NEGATIVE); NITRATE,URINE Negative (NEGATIVE); OCCULT BLOOD,URINE Negative (NEGATIVE); PH,URINE 5.5 (5.0-8.0); PROTEIN,URINE Negative (NEGATIVE); UROBILINOGEN,URINE 0.2 mg/dL (0.2-1.0)
[2021-05-13 07:25] LABS: ALBUMIN 3.2 g/dL (3.5-5.0); BILIRUBIN,TOTAL 0.7 mg/dL (0.2-1.0); CREATININE 1.4 mg/dL (0.5-1.5); POTASSIUM 5.3 mmol/L (3.5-5.1); TOTAL PROTEIN, SERUM 7.9 g/dL (6.0-8.3)
[2021-05-13 08:28] LABS: B-TYPE NATRIURETIC PEPTIDE 2560 pg/mL (0-100)
[2021-05-13] MEDS ORDERED: ACETAMINOPHEN 325 MG TAB PO PRN ×2 (09:00)
[2021-05-13] MEDS ORDERED: LACTULOSE 20 GM/30 ML UDCUP PO PRN (09:00)
[2021-05-13] MEDS ORDERED: ONDANSETRON 4MG INJ IV PRN (09:00)
[2021-05-13] MEDS ORDERED: MAG/ALUM/SIMETH 30 ML UDCUP PO PRN (09:00)
[2021-05-13] MEDS ORDERED: ZOLPIDEM TARTRATE 5 MG TAB PO PRN (09:00)
[2021-05-13] MEDS: Vitamin B Complex/Vit C/Folic Acid PO SCH (09:18)
[2021-05-13] MEDS: FAMOTIDINE 20MG VIAL IV SCH ×2 (09:18→22:03)
[2021-05-13] MEDS: SPIRONOLACTONE 25 MG TAB PO SCH ×2 (09:18→22:03)
[2021-05-13] MEDS: ASPIRIN 81 MG EC TAB PO SCH (09:18)
[2021-05-13] MEDS: FUROSEMIDE 20MG VIAL IV SCH ×2 (09:18→22:03)
[2021-05-13] MEDS: CLOPIDOGREL 75MG TAB PO SCH (09:18)
[2021-05-13] MEDS: ENOXAPARIN SODIUM 30 MG/0.3 ML SQ SCH (09:19)
[2021-05-13] MEDS: LISINOPRIL 10 MG TABLET PO SCH (09:19)
[2021-05-13 09:31] LABS: AMPHET/METH SCREEN,URINE NEGATIVE (NEGATIVE); BARBITURATE SCREEN, URINE NEGATIVE (NEGATIVE); BENZODIAZEPINES SCREEN,URINE NEGATIVE (NEGATIVE); CANNABINOID SCREEN,URINE NEGATIVE (NEGATIVE); COCAINE SCREEN,URINE NEGATIVE (NEGATIVE); OPIATE SCREEN,URINE NEGATIVE (NEGATIVE); PHENCYCLIDINE SCREEN,URINE NEGATIVE (NEGATIVE)
[2021-05-13 16:00] VITALS: BP 145/91
[2021-05-13 20:58] VITALS: BP 134/95
[2021-05-14] VITALS (7 sets, daily range): BP systolic 120–141; BP diastolic 73–97
[2021-05-14 03:59] LABS: HEMATOCRIT 37.4 % (42-54); MEAN CORPUSCULAR HEMOGLOBIN 27.6 pg (27.0-33.0); MEAN CORPUSCULAR HGB CONC 32.1 g/dL (32.0-36.0); RED BLOOD CELL COUNT(AUTO) 4.35 MIL/uL (4.50-6.20); WHITE BLOOD COUNT (AUTO) 8.4 K/uL (4.8-10.8)
[2021-05-14 04:13] LABS: ALBUMIN 3.2 g/dL (3.5-5.0); BILIRUBIN,TOTAL 0.7 mg/dL (0.2-1.0); CREATININE 1.5 mg/dL (0.5-1.5); POTASSIUM 4.1 mmol/L (3.5-5.1); TOTAL PROTEIN, SERUM 7.7 g/dL (6.0-8.3)
[2021-05-14] MEDS: FUROSEMIDE 20MG VIAL IV SCH ×2 (08:50→20:51)
[2021-05-14] MEDS: FAMOTIDINE 20MG VIAL IV SCH ×2 (08:51→20:51)
[2021-05-14] MEDS: ASPIRIN 81 MG EC TAB PO SCH (08:53)
[2021-05-14] MEDS: Vitamin B Complex/Vit C/Folic Acid PO SCH (08:53)
[2021-05-14] MEDS: SPIRONOLACTONE 25 MG TAB PO SCH ×2 (08:53→20:50)
[2021-05-14] MEDS: CLOPIDOGREL 75MG TAB PO SCH (08:53)
[2021-05-14] MEDS: ENOXAPARIN SODIUM 30 MG/0.3 ML SQ SCH (08:54)
[2021-05-14] MEDS: LISINOPRIL 10 MG TABLET PO SCH (08:54)
[2021-05-15 04:55] VITALS: BP 118/93
[2021-05-15 08:00] VITALS: BP 130/97
[2021-05-15] MEDS: ENOXAPARIN SODIUM 30 MG/0.3 ML SQ SCH (09:00)
[2021-05-15 09:02] LABS: CREATININE 1.2 mg/dL (0.5-1.5); POTASSIUM 4.4 mmol/L (3.5-5.1)
[2021-05-15] MEDS: SPIRONOLACTONE 25 MG TAB PO SCH (09:26)
[2021-05-15] MEDS: ASPIRIN 81 MG EC TAB PO SCH (09:26)
[2021-05-15] MEDS: Vitamin B Complex/Vit C/Folic Acid PO SCH (09:26)
[2021-05-15] MEDS: CLOPIDOGREL 75MG TAB PO SCH (09:26)
[2021-05-15] MEDS: FAMOTIDINE 20MG VIAL IV SCH (09:26)
[2021-05-15] MEDS: LISINOPRIL 10 MG TABLET PO SCH (09:42)
[2021-05-15 11:35] VITALS: BP 120/89
[2021-05-15] MEDS ORDERED: BUPROPION HCL 150 MG TABLET.SA PO SCH (11:55)
[2021-05-15 16:00] VITALS: BP 122/84
[2021-05-15] MEDS ORDERED: SODIUM BICARB 50MEQ 50ML VIAL 0 ML ONE (17:13)
[2021-05-15] MEDS ORDERED: IOHEXOL-350 50ML VIAL IV ONE (17:14)
[2021-05-15] MEDS ORDERED: NITROGLYCERIN 50MG VIAL IV ONE (17:14)
[2021-05-15] MEDS ORDERED: IOHEXOL 350 MG/ML 100ML INFUS..BTL IV ONE (17:14)
[2021-05-15] MEDS ORDERED: LIDOCAINE HCL 400MG/20ML VIAL ONE (17:14)
[2021-05-15] MEDS ORDERED: TRAZODONE HCL 50 MG TAB PO SCH (21:00)
== END 2021-05-15 16:33 | disposition left against medical advice (07) | DRG 280 ==
LOC: EDH 05:19 → EDHIP 05:20 → 4DH 16:56
PROVIDERS: ADMIT Hospitalist; ATTEND Hospitalist
DX: I21.4 Non-ST elevation (NSTEMI) myocardial infarction (principal); I50.43 Acute on chronic combined systolic (congestive) and diastolic (congestive) heart failure; I42.6 Alcoholic cardiomyopathy; I13.0 Hypertensive heart and chronic kidney disease with heart failure and stage 1 through stage 4 chronic kidney disease, or unspecified chronic kidney disease; F10.20 Alcohol dependence, uncomplicated; K70.30 Alcoholic cirrhosis of liver without ascites; I25.5 Ischemic cardiomyopathy; I25.10 Atherosclerotic heart disease of native coronary artery without angina pectoris; F17.200 Nicotine dependence, unspecified, uncomplicated; N18.9 Chronic kidney disease, unspecified; E78.5 Hyperlipidemia, unspecified; E87.5 Hyperkalemia; F14.10 Cocaine abuse, uncomplicated; Z91.19 Patient's noncompliance with other medical treatment and regimen; Z91.14 Patient's other noncompliance with medication regimen; Z83.3 Family history of diabetes mellitus; Z83.79 Family history of other diseases of the digestive system; Z84.1 Family history of disorders of kidney and ureter; Z82.49 Family history of ischemic heart disease and other diseases of the circulatory system
CPT/HCPCS: 36415; 71045; 80048; 80053; 80305; 81003; 82550; 83874; 83880; 84484; 85025; 85027; 87635; 93005; G0378; J1644; J1650; J1940; J3490; Q9967

== ENCOUNTER 2021-05-19 14:07 | Emergency (ER) | payer SELFPAY ==
[~2021-05-19] VITALS: Ht 165.1 cm; Wt 62.6 kg
[2021-05-19] MEDS ORDERED: FAMOTIDINE 20MG TAB PO SCH (14:30)
[2021-05-19] MEDS ORDERED: MAG/ALUM/SIMETH 30 ML UDCUP PO SCH (14:30)
[2021-05-19] MEDS ORDERED: ONDANSETRON 4MG INJ IVP SCH (14:30)
[2021-05-19] MEDS ORDERED: LORAZEPAM 2 MG/ML 1 ML VIAL IVP SCH (14:30)
[2021-05-19 14:32] LABS: APPEARANCE,URINE Clear (CLEAR); BILIRUBIN,URINE Small (NEGATIVE); COLOR,URINE Dark Yellow (YELLOW); GLUCOSE, URINE (UA) Negative (NEGATIVE); KETONES,URINE Negative (NEGATIVE); LEUKOCYTE ESTERASE ,URINE Negative (NEGATIVE); NITRATE,URINE Negative (NEGATIVE); OCCULT BLOOD,URINE Negative (NEGATIVE); PROTEIN,URINE POS 2+ mg/dL (NEGATIVE)
[2021-05-19 14:36] LABS: BASOPHILS % (AUTO) 0.4 % (0.0-5.0); EOSINOPHILS % (AUTO) 1.5 % (0.0-8.0); HEMATOCRIT 41.5 % (42-54); LYMPHOCYTES % (AUTO) 15.4 % (21.0-51.0); MEAN CORPUSCULAR HEMOGLOBIN 27.7 pg (27.0-33.0); MEAN CORPUSCULAR HGB CONC 31.6 g/dL (32.0-36.0); MEAN CORPUSCULAR VOLUME 87.7 fL (79-99); NEUTROPHILS % (AUTO) 69.9 % (40.0-77.0); PLATELET COUNT (AUTO) 257 K/uL (130-400); RED BLOOD CELL COUNT(AUTO) 4.73 MIL/uL (4.50-6.20); RED CELL DISTRIBUTION WIDTH 22.4 % (11.0-15.5); WHITE BLOOD COUNT (AUTO) 8.9 K/uL (4.8-10.8)
[2021-05-19 14:48] LABS: CREATININE 1.3 mg/dL (0.5-1.5); POTASSIUM 4.4 mmol/L (3.5-5.1)
[2021-05-19 14:53] LABS: ALBUMIN 3.4 g/dL (3.5-5.0); BILIRUBIN,TOTAL 1.1 mg/dL (0.2-1.0); TOTAL PROTEIN, SERUM 8.5 g/dL (6.0-8.3)
[2021-05-19 14:57] LABS: BACTERIA,URINE Few /HPF (None Seen); MUCUS,URINE Few LPF (None Seen); SQUAMOUS EPITHELIAL CELL,UR Few /HPF (0-2)
[2021-05-19] MEDS ORDERED: NITROGLYCERIN 1GM OINT 1 INCH/1GM TD SCH (15:00)
[2021-05-19] MEDS ORDERED: ASPIRIN 325MG TAB PO SCH (15:00)
[2021-05-19] MEDS ORDERED: ASPIRIN 325MG TAB ONE (15:03)
[2021-05-19] MEDS ORDERED: NITROGLYCERIN 1GM OINT 1 INCH/1GM TD ONE (15:03)
[2021-05-19 15:52] LABS: AMPHET/METH SCREEN,URINE NEGATIVE (NEGATIVE); BARBITURATE SCREEN, URINE NEGATIVE (NEGATIVE); BENZODIAZEPINES SCREEN,URINE NEGATIVE (NEGATIVE); CANNABINOID SCREEN,URINE NEGATIVE (NEGATIVE); COCAINE SCREEN,URINE NEGATIVE (NEGATIVE); OPIATE SCREEN,URINE NEGATIVE (NEGATIVE); PHENCYCLIDINE SCREEN,URINE NEGATIVE (NEGATIVE)
[2021-05-19] MEDS ORDERED: DICY20TA2 PO (15:56)
[2021-05-19] MEDS ORDERED: FAMO-136 PO (15:56)
[2021-05-19 16:36] VITALS: BP 129/88
== END 2021-05-19 16:39 | disposition home or self-care (01) ==
LOC: EDH 14:07
DX: K74.60 Unspecified cirrhosis of liver (principal); I10 Essential (primary) hypertension
CPT/HCPCS: 36415; 71045; 80053; 80305; 81001; 83690; 84484; 85025; 93005; 96374; 96375; 99285; J2060; J2405

== ENCOUNTER 2021-05-25 10:22 | Emergency (ER) | payer OTHER ==
[~2021-05-25] VITALS: Ht 165.1 cm; Wt 62.6 kg
[~2021-05-25 10:22] MED LIST changes: +DICY20TA2 PO; +FAMO-136 PO
[2021-05-25 11:16] LABS: BASOPHILS % (AUTO) 0.3 % (0.0-5.0); EOSINOPHILS % (AUTO) 0.4 % (0.0-8.0); HEMATOCRIT 38.6 % (42-54); LYMPHOCYTES % (AUTO) 12.4 % (21.0-51.0); MEAN CORPUSCULAR HEMOGLOBIN 27.5 pg (27.0-33.0); MEAN CORPUSCULAR HGB CONC 31.9 g/dL (32.0-36.0); MEAN CORPUSCULAR VOLUME 86.4 fL (79-99); MONOCYTES % (AUTO) 9.7 % (3.0-13.0); NEUTROPHILS % (AUTO) 76.7 % (40.0-77.0); PLATELET COUNT (AUTO) 271 K/uL (130-400); RED BLOOD CELL COUNT(AUTO) 4.47 MIL/uL (4.50-6.20); RED CELL DISTRIBUTION WIDTH 21.3 % (11.0-15.5); WHITE BLOOD COUNT (AUTO) 7.6 K/uL (4.8-10.8)
[2021-05-25 11:24] LABS: CREATININE 1.2 mg/dL (0.5-1.5); POTASSIUM 4.6 mmol/L (3.5-5.1)
[2021-05-25 11:29] LABS: ALBUMIN 3.1 g/dL (3.5-5.0); TOTAL PROTEIN, SERUM 7.5 g/dL (6.0-8.3)
[2021-05-25 11:43] LABS: B-TYPE NATRIURETIC PEPTIDE 2680 pg/mL (0-100)
[2021-05-25] MEDS ORDERED: FUROSEMIDE 40MG VIAL IV ONE ×2 (12:00→17:00)
[2021-05-25] MEDS ORDERED: ASPIRIN 325MG TAB PO ONE (12:00)
[2021-05-25] MEDS ORDERED: FUROSEMIDE 40MG VIAL ONE ×2 (13:38→16:44)
[2021-05-25] MEDS ORDERED: ASPIRIN 325MG TAB ONE (13:38)
[2021-05-25 13:44] LABS: APPEARANCE,URINE Clear (CLEAR); BILIRUBIN,URINE Negative (NEGATIVE); COLOR,URINE Yellow (YELLOW); GLUCOSE, URINE (UA) Negative (NEGATIVE); KETONES,URINE Negative (NEGATIVE); LEUKOCYTE ESTERASE ,URINE Negative (NEGATIVE); NITRATE,URINE Negative (NEGATIVE); OCCULT BLOOD,URINE Negative (NEGATIVE); PROTEIN,URINE POS 1+ mg/dL (NEGATIVE)
[2021-05-25 13:52] LABS: AMPHET/METH SCREEN,URINE NEGATIVE (NEGATIVE); BARBITURATE SCREEN, URINE NEGATIVE (NEGATIVE); BENZODIAZEPINES SCREEN,URINE NEGATIVE (NEGATIVE); CANNABINOID SCREEN,URINE NEGATIVE (NEGATIVE); COCAINE SCREEN,URINE POSITIVE (NEGATIVE); OPIATE SCREEN,URINE NEGATIVE (NEGATIVE); PHENCYCLIDINE SCREEN,URINE NEGATIVE (NEGATIVE)
[2021-05-25 14:19] LABS: BACTERIA,URINE Rare /HPF (None Seen); RBC,URINE 0-1 /HPF (0-1); WBC,URINE 0-1 /HPF (0-1)
[2021-05-25 14:20] LABS: SQUAMOUS EPITHELIAL CELL,UR None Seen /HPF (0-2)
[2021-05-25] MEDS ORDERED: ACET1TAB25 PO (16:53)
[2021-05-25] MEDS ORDERED: FURO40TA7 PO (16:53)
[2021-05-25 17:53] VITALS: BP 124/78
== END 2021-05-25 17:55 | disposition home or self-care (01) ==
LOC: EDH 10:22
DX: I11.0 Hypertensive heart disease with heart failure (principal); I50.9 Heart failure, unspecified; I25.10 Atherosclerotic heart disease of native coronary artery without angina pectoris; I25.2 Old myocardial infarction; F10.20 Alcohol dependence, uncomplicated; Z79.82 Long term (current) use of aspirin; Z79.899 Other long term (current) drug therapy
CPT/HCPCS: 36415; 71045; 80053; 80305; 81001; 82140; 83880; 84484; 85025; 96374; 96376; 99284; J1940 ×2

== ENCOUNTER 2021-06-29 19:25 | Emergency (ER) | payer OTHER ==
[~2021-06-29] VITALS: Ht 165.1 cm; Wt 68.0 kg
[~2021-06-29 19:25] MED LIST changes: +ACET1TAB25 PO
[2021-06-29 20:03] LABS: BASOPHILS % (AUTO) 0.5 % (0.0-5.0); EOSINOPHILS % (AUTO) 0.4 % (0.0-8.0); HEMATOCRIT 40.8 % (42-54); LYMPHOCYTES % (AUTO) 12.6 % (21.0-51.0); MEAN CORPUSCULAR HEMOGLOBIN 26.8 pg (27.0-33.0); MEAN CORPUSCULAR HGB CONC 31.1 g/dL (32.0-36.0); MEAN CORPUSCULAR VOLUME 86.3 fL (79-99); MONOCYTES % (AUTO) 11.6 % (3.0-13.0); NEUTROPHILS % (AUTO) 74.3 % (40.0-77.0); PLATELET COUNT (AUTO) 305 K/uL (130-400); RED BLOOD CELL COUNT(AUTO) 4.73 MIL/uL (4.50-6.20); RED CELL DISTRIBUTION WIDTH 17.8 % (11.0-15.5); WHITE BLOOD COUNT (AUTO) 8.3 K/uL (4.8-10.8)
[2021-06-29 20:15] LABS: POTASSIUM 3.4 mmol/L (3.5-5.1)
[2021-06-29 20:20] LABS: BILIRUBIN,TOTAL 1.7 mg/dL (0.2-1.0); TOTAL PROTEIN, SERUM 7.8 g/dL (6.0-8.3)
[2021-06-29 20:28] LABS: B-TYPE NATRIURETIC PEPTIDE 2530 pg/mL (0-100)
[2021-06-29] MEDS ORDERED: FURO40TA7 PO (20:45)
[2021-06-29] MEDS ORDERED: FUROSEMIDE 40MG VIAL IV ONE (21:00)
[2021-06-29 21:14] VITALS: BP 132/74
== END 2021-06-29 21:20 | disposition home or self-care (01) ==
LOC: EEVIPCON 19:25 → EDH 19:25
DX: K74.60 Unspecified cirrhosis of liver (principal); R60.0 Localized edema; I10 Essential (primary) hypertension; I25.10 Atherosclerotic heart disease of native coronary artery without angina pectoris; F10.20 Alcohol dependence, uncomplicated; Z91.11 Patient's noncompliance with dietary regimen; Z79.899 Other long term (current) drug therapy
CPT/HCPCS: 36415; 71045; 80053; 83880; 84484; 85025; 93005; 96374; 99285; J1940

== ENCOUNTER 2021-07-05 23:05 | Inpatient (IN) | payer SELFPAY ==
[~2021-07-05] VITALS: Ht 165.1 cm; Wt 65.8 kg
[2021-07-05 23:43] LABS: BASOPHILS % (AUTO) 0.6 % (0.0-5.0); EOSINOPHILS % (AUTO) 1.5 % (0.0-8.0); HEMATOCRIT 40.7 % (42-54); LYMPHOCYTES % (AUTO) 14.4 % (21.0-51.0); MEAN CORPUSCULAR HEMOGLOBIN 26.8 pg (27.0-33.0); MEAN CORPUSCULAR HGB CONC 30.7 g/dL (32.0-36.0); MEAN CORPUSCULAR VOLUME 87.3 fL (79-99); MONOCYTES % (AUTO) 12.4 % (3.0-13.0); NEUTROPHILS % (AUTO) 70.5 % (40.0-77.0); PLATELET COUNT (AUTO) 262 K/uL (130-400); RED BLOOD CELL COUNT(AUTO) 4.66 MIL/uL (4.50-6.20); RED CELL DISTRIBUTION WIDTH 17.4 % (11.0-15.5); WHITE BLOOD COUNT (AUTO) 9.5 K/uL (4.8-10.8)
[2021-07-05] MEDS ORDERED: FUROSEMIDE 40MG VIAL IVP ONE (23:45)
[2021-07-05 23:59] LABS: ALANINE AMINOTRANSFERASE 24 U/L (12-78); ALBUMIN 3.1 g/dL (3.5-5.0); ALCOHOL, BLOOD < 3 mg/dL (0-10); ASPARTATE AMINOTRANSFERASE 35 U/L (10-37); BILIRUBIN,TOTAL 1.6 mg/dL (0.2-1.0); CARBON DIOXIDE 24 mmol/L (21-32); CHLORIDE 104 mmol/L (101-111); CREATININE 1.9 mg/dL (0.5-1.5); GLOMERULAR FILTR. RATE CALC 41 mL/min (>60); GLUCOSE,RANDOM 75 mg/dL (70-105); LIPASE 466 U/L (114-286); SODIUM SERUM 138 mmol/L (136-145); TOTAL PROTEIN, SERUM 7.7 g/dL (6.0-8.3); UREA NITROGEN, BLOOD 38 mg/dL (7-18)
[2021-07-06 00:14] LABS: B-TYPE NATRIURETIC PEPTIDE 2720 pg/mL (0-100)
[2021-07-06] MEDS ORDERED: POTASSIUM BICARB/CIT AC 25 MEQ TABLET.EFF PO ONE (00:30)
[2021-07-06] MEDS ORDERED: POTASSIUM CHLORIDE 10MEQ/100ML 10 MEQ/100 ML ML IV ONE (00:30)
[2021-07-06] MEDS ORDERED: KCL 20 MEQ ERTAB PO PRN (01:30)
[2021-07-06] MEDS ORDERED: POTASSIUM CHLORIDE 20MEQ/100ML 100 ML IV PRN (01:30)
[2021-07-06] MEDS ORDERED: LIDOCAINE HCL-MPF 1% 2ML VIAL IV PRN (01:30)
[2021-07-06] MEDS ORDERED: POTASSIUM CHLORIDE 10% ELIXIR 20 MEQ/15 ML UDCUP PO PRN (01:30)
[2021-07-06] MEDS ORDERED: KCL 20 MEQ ERTAB PO ONE (01:30)
[2021-07-06 01:57] LABS: APPEARANCE,URINE Clear (CLEAR); BILIRUBIN,URINE Negative (NEGATIVE); COLOR,URINE Yellow (YELLOW); GLUCOSE, URINE (UA) Negative (NEGATIVE); KETONES,URINE Negative (NEGATIVE); LEUKOCYTE ESTERASE ,URINE Negative (NEGATIVE); NITRATE,URINE Negative (NEGATIVE); OCCULT BLOOD,URINE Negative (NEGATIVE); PROTEIN,URINE Negative (NEGATIVE)
[2021-07-06 02:05] LABS: AMPHET/METH SCREEN,URINE NEGATIVE (NEGATIVE); BARBITURATE SCREEN, URINE NEGATIVE (NEGATIVE); BENZODIAZEPINES SCREEN,URINE NEGATIVE (NEGATIVE); CANNABINOID SCREEN,URINE NEGATIVE (NEGATIVE); COCAINE SCREEN,URINE NEGATIVE (NEGATIVE); OPIATE SCREEN,URINE NEGATIVE (NEGATIVE); PHENCYCLIDINE SCREEN,URINE NEGATIVE (NEGATIVE)
[2021-07-06] MEDS: NITROGLYCERIN 1GM OINT 1 INCH/1GM TD SCH ×3 (02:29→17:13)
[2021-07-06 05:28] LABS: MAGNESIUM 2.1 mg/dL (1.80-2.40); PHOSPHORUS 3.1 mg/dL (2.5-4.9)
[2021-07-06 06:10] LABS: INR 1.78 (0.85-1.15); PROTHROMBIN TIME 18.4 SEC (9.6-11.6)
[2021-07-06 06:11] LABS: PARTIAL THROMBOPLASTIN TIME 29.2 SEC (26.3-35.5)
[2021-07-06] MEDS: FAMOTIDINE 20MG TAB PO SCH (09:00)
[2021-07-06] MEDS: HEPARIN 5,000 UNIT VIAL SQ SCH ×3 (09:00→20:56)
[2021-07-06] MEDS: LISINOPRIL 10 MG TABLET PO SCH (09:00)
[2021-07-06] MEDS: ASPIRIN 81 MG EC TAB PO SCH (09:00)
[2021-07-06] MEDS: FUROSEMIDE 40MG VIAL IVP SCH ×2 (09:00→20:56)
[2021-07-06 10:19] LABS: HEMATOCRIT 39.7 % (42-54); MEAN CORPUSCULAR HEMOGLOBIN 26.8 pg (27.0-33.0); MEAN CORPUSCULAR HGB CONC 31.5 g/dL (32.0-36.0); PLATELET COUNT (AUTO) 259 K/uL (130-400); RED BLOOD CELL COUNT(AUTO) 4.67 MIL/uL (4.50-6.20); RED CELL DISTRIBUTION WIDTH 17.3 % (11.0-15.5); WHITE BLOOD COUNT (AUTO) 7.9 K/uL (4.8-10.8)
[2021-07-06 10:33] LABS: CREATININE 1.7 mg/dL (0.5-1.5); POTASSIUM 3.6 mmol/L (3.5-5.1)
[2021-07-06 10:38] LABS: BILIRUBIN,TOTAL 2.1 mg/dL (0.2-1.0); TOTAL PROTEIN, SERUM 7.6 g/dL (6.0-8.3)
[2021-07-06 11:18] LABS: LYMPHOCYTES % (MANUAL) 17 % (22-44); MAN.DIFF COMMENT-IMPRESSION MANUAL DIFFERENTIAL; MONOCYTES % (MANUAL) 6 % (2-9); PLATELET MORPHOLOGY COMMENT ADEQUATE; SEGMENTED NEUTROPHILS % 77 % (40-70)
[2021-07-06] MEDS ORDERED: CALCIUM CARB 500MG CHEW TAB PO SCH (19:00)
[2021-07-06] MEDS ORDERED: LACTATED RINGERS 1000ML 1,000 ML IV SCH (19:00)
[2021-07-07] MEDS: NITROGLYCERIN 1GM OINT 1 INCH/1GM TD SCH ×2 (01:56→09:09)
[2021-07-07 03:00] VITALS: BP 117/83
[2021-07-07 06:01] LABS: BASOPHILS % (AUTO) 0.7 % (0.0-5.0); EOSINOPHILS % (AUTO) 0.9 % (0.0-8.0); HEMATOCRIT 37.6 % (42-54); LYMPHOCYTES % (AUTO) 12.6 % (21.0-51.0); MEAN CORPUSCULAR HEMOGLOBIN 26.6 pg (27.0-33.0); MEAN CORPUSCULAR HGB CONC 31.4 g/dL (32.0-36.0); MEAN CORPUSCULAR VOLUME 84.7 fL (79-99); MONOCYTES % (AUTO) 11.1 % (3.0-13.0); NEUTROPHILS % (AUTO) 74.4 % (40.0-77.0); PLATELET COUNT (AUTO) 254 K/uL (130-400); RED BLOOD CELL COUNT(AUTO) 4.44 MIL/uL (4.50-6.20); RED CELL DISTRIBUTION WIDTH 17.2 % (11.0-15.5); WHITE BLOOD COUNT (AUTO) 8.8 K/uL (4.8-10.8)
[2021-07-07 06:14] LABS: CREATININE 1.8 mg/dL (0.5-1.5); MAGNESIUM 2.1 mg/dL (1.80-2.40); PHOSPHORUS 2.8 mg/dL (2.5-4.9); POTASSIUM 3.1 mmol/L (3.5-5.1)
[2021-07-07 08:05] VITALS: BP 117/87
[2021-07-07] MEDS: ASPIRIN 81 MG EC TAB PO SCH (09:06)
[2021-07-07] MEDS: FAMOTIDINE 20MG TAB PO SCH (09:07)
[2021-07-07] MEDS: LISINOPRIL 10 MG TABLET PO SCH (09:07)
[2021-07-07] MEDS: FUROSEMIDE 40MG VIAL IVP SCH (09:08)
[2021-07-07] MEDS: HEPARIN 5,000 UNIT VIAL SQ SCH (09:14)
[2021-07-07 10:39] LABS: CREATININE 1.7 mg/dL (0.5-1.5); POTASSIUM 3.2 mmol/L (3.5-5.1)
[2021-07-07 11:56] VITALS: BP 118/88
[2021-07-07] MEDS ORDERED: NITROGLYCERIN 1GM OINT 1 INCH/1GM TD SCH (14:00)
[2021-07-07] MEDS ORDERED: METO5TAB7 PO (14:29)
[2021-07-07] MEDS ORDERED: FURO40TA7 PO (14:29)
[2021-07-07] MEDS ORDERED: SPIR50TA PO (14:29)
[2021-07-07] MEDS ORDERED: POLY17PO4 PO (14:32)
[2021-07-07] MEDS ORDERED: LISI5TAB21 PO (14:32)
[2021-07-07] MEDS ORDERED: SPIRONOLACTONE 25 MG TAB PO SCH (21:00)
[2021-07-08] MEDS ORDERED: ENOXAPARIN SODIUM 30 MG/0.3 ML SQ SCH (09:00)
== END 2021-07-07 14:50 | disposition left against medical advice (07) | DRG 291 ==
LOC: EDH 23:05 → EDHIP 23:06 → 2DH 07-07 02:39
PROVIDERS: ADMIT Internal Medicine; ATTEND Internal Medicine
DX: I13.0 Hypertensive heart and chronic kidney disease with heart failure and stage 1 through stage 4 chronic kidney disease, or unspecified chronic kidney disease (principal); I50.41 Acute combined systolic (congestive) and diastolic (congestive) heart failure; N17.9 Acute kidney failure, unspecified; J98.11 Atelectasis; E87.6 Hypokalemia; E78.5 Hyperlipidemia, unspecified; N26.1 Atrophy of kidney (terminal); K57.30 Diverticulosis of large intestine without perforation or abscess without bleeding; N18.9 Chronic kidney disease, unspecified; F17.200 Nicotine dependence, unspecified, uncomplicated; K29.70 Gastritis, unspecified, without bleeding; K59.00 Constipation, unspecified; N20.0 Calculus of kidney; I25.2 Old myocardial infarction; Z91.11 Patient's noncompliance with dietary regimen; Z91.19 Patient's noncompliance with other medical treatment and regimen; Z83.3 Family history of diabetes mellitus; Z83.79 Family history of other diseases of the digestive system; Z84.1 Family history of disorders of kidney and ureter; Z82.49 Family history of ischemic heart disease and other diseases of the circulatory system
CPT/HCPCS: 36415; 71045; 74176; 80048; 80053; 80305; 81003; 83690; 83735; 83880; 84100; 84484; 85025; 85610; 85730; 93005; G0378; J1644; J1940; J3490

== ENCOUNTER 2021-10-11 15:08 | Emergency (ER) | payer OTHER ==
[~2021-10-11] VITALS: Ht 165.1 cm; Wt 68.0 kg
[~2021-10-11 15:08] MED LIST changes: -ACET1TAB25 PO; -CARV3.1262 PO; -CYAN250014 PO; -FAMO20TA8 PO; -FOLI1 PO; -LACT10SO9 PO; -LISI2.5T13 PO; +LISI5TAB21 PO; +METO5TAB7 PO; -MULT-1082 PO; +POLY17PO4 PO; -SPIR25TA6 PO; +SPIR50TA PO
[2021-10-11 15:52] LABS: HEMATOCRIT 35.6 % (42-54); MEAN CORPUSCULAR HEMOGLOBIN 30.1 pg (27.0-33.0); MEAN CORPUSCULAR HGB CONC 32.6 g/dL (32.0-36.0); MEAN CORPUSCULAR VOLUME 92.5 fL (79-99); PLATELET COUNT (AUTO) 211 K/uL (130-400); RED BLOOD CELL COUNT(AUTO) 3.85 MIL/uL (4.50-6.20); RED CELL DISTRIBUTION WIDTH 18.5 % (11.0-15.5)
[2021-10-11 16:03] LABS: CREATININE 1.5 mg/dL (0.5-1.5); POTASSIUM 4.2 mmol/L (3.5-5.1)
[2021-10-11 16:08] LABS: ALBUMIN 3.1 g/dL (3.5-5.0); BILIRUBIN,TOTAL 0.9 mg/dL (0.2-1.0); TOTAL PROTEIN, SERUM 7.4 g/dL (6.0-8.3)
[2021-10-11 16:09] LABS: BASOPHILS % (AUTO) 0.4 % (0.0-5.0); EOSINOPHILS % (AUTO) 0.3 % (0.0-8.0); LYMPHOCYTES % (AUTO) 9.2 % (21.0-51.0); MONOCYTES % (AUTO) 8.4 % (3.0-13.0); NEUTROPHILS % (AUTO) 81.1 % (40.0-77.0)
[2021-10-11 16:22] LABS: MAGNESIUM 2.3 mg/dL (1.80-2.40)
[2021-10-11] MEDS ORDERED: 0.9%NACL 1000ML 1,000 ML IV ONE (16:30)
[2021-10-11] MEDS ORDERED: FUROSEMIDE 40MG VIAL IV ONE (17:00)
[2021-10-11] MEDS ORDERED: FUROSEMIDE 40MG VIAL ONE (17:01)
[2021-10-11 19:10] VITALS: BP 120/89
== END 2021-10-11 19:11 | disposition home or self-care (01) ==
LOC: EDH 15:08
DX: I11.0 Hypertensive heart disease with heart failure (principal); I50.9 Heart failure, unspecified; F10.10 Alcohol abuse, uncomplicated; F14.10 Cocaine abuse, uncomplicated; K21.9 Gastro-esophageal reflux disease without esophagitis; F32.A Depression, unspecified; F17.200 Nicotine dependence, unspecified, uncomplicated; Z79.899 Other long term (current) drug therapy; Z91.19 Patient's noncompliance with other medical treatment and regimen; I25.2 Old myocardial infarction
CPT/HCPCS: 36415; 71045; 80053; 82550; 83735; 83880; 84484; 85025; 86701; 87390; 93005; 96374; 99285; J1940

== ENCOUNTER 2021-11-14 14:35 | Inpatient (IN) | payer OTHER ==
[~2021-11-14] VITALS: Ht 165.1 cm; Wt 59.8 kg
[2021-11-14 14:49] LABS: BASOPHILS % (AUTO) 0.2 % (0.0-5.0); EOSINOPHILS % (AUTO) 0.6 % (0.0-8.0); HEMATOCRIT 34.4 % (42-54); LYMPHOCYTES % (AUTO) 11.5 % (21.0-51.0); MEAN CORPUSCULAR HEMOGLOBIN 29.9 pg (27.0-33.0); MEAN CORPUSCULAR HGB CONC 33.4 g/dL (32.0-36.0); MEAN CORPUSCULAR VOLUME 89.6 fL (79-99); MONOCYTES % (AUTO) 9.1 % (3.0-13.0); NEUTROPHILS % (AUTO) 78.4 % (40.0-77.0); PLATELET COUNT (AUTO) 243 K/uL (130-400); RED BLOOD CELL COUNT(AUTO) 3.84 MIL/uL (4.50-6.20); RED CELL DISTRIBUTION WIDTH 13.9 % (11.0-15.5); WHITE BLOOD COUNT (AUTO) 8.1 K/uL (4.8-10.8)
[2021-11-14 14:59] LABS: CREATININE 1.6 mg/dL (0.5-1.5)
[2021-11-14 15:03] LABS: ALBUMIN 3.1 g/dL (3.5-5.0); BILIRUBIN,TOTAL 0.9 mg/dL (0.2-1.0); TOTAL PROTEIN, SERUM 7.9 g/dL (6.0-8.3)
[2021-11-14] MEDS ORDERED: POTASSIUM BICARB/CIT AC 25 MEQ TABLET.EFF ONE (15:12)
[2021-11-14 15:42] LABS: INR 1.6 (0.85-1.15); PROTHROMBIN TIME 16.7 SEC (9.6-11.6)
[2021-11-14] MEDS ORDERED: FUROSEMIDE 40MG VIAL IV ONE (19:00)
[2021-11-14] MEDS ORDERED: ONDANSETRON 4MG INJ IV PRN (20:00)
[2021-11-14] MEDS ORDERED: IPRATROPIUM/ALBUTEROL SULFATE 3 ML SOLUTION IH PRN (20:00)
[2021-11-14] MEDS ORDERED: LACTULOSE 20 GM/30 ML UDCUP PO PRN (20:00)
[2021-11-14] MEDS ORDERED: HYDRALAZINE 20MG/ML VIAL IV PRN (20:00)
[2021-11-14] MEDS ORDERED: ACETAMINOPHEN 325 MG TAB PO PRN ×2 (20:00)
[2021-11-14] MEDS ORDERED: NITROGLYCERIN 0.4 MG SL TAB SL PRN (20:00)
[2021-11-14] MEDS: ENOXAPARIN SODIUM 30 MG/0.3 ML SQ SCH (20:23)
[2021-11-14 20:24] LABS: APPEARANCE,URINE CLEAR (CLEAR); BILIRUBIN,URINE NEGATIVE (NEGATIVE); COLOR,URINE YELLOW (YELLOW); GLUCOSE, URINE (UA) NEGATIVE (NEGATIVE); KETONES,URINE NEGATIVE (NEGATIVE); LEUKOCYTE ESTERASE ,URINE NEGATIVE (NEGATIVE); NITRATE,URINE NEGATIVE (NEGATIVE); OCCULT BLOOD,URINE NEGATIVE (NEGATIVE); PROTEIN,URINE NEGATIVE (NEGATIVE); UROBILINOGEN,URINE 0.2 mg/dL (0.2-1.0)
[2021-11-14 20:34] LABS: AMPHET/METH SCREEN,URINE NEGATIVE (NEGATIVE); BARBITURATE SCREEN, URINE NEGATIVE (NEGATIVE); BENZODIAZEPINES SCREEN,URINE NEGATIVE (NEGATIVE); CANNABINOID SCREEN,URINE NEGATIVE (NEGATIVE); COCAINE SCREEN,URINE NEGATIVE (NEGATIVE); OPIATE SCREEN,URINE NEGATIVE (NEGATIVE); PHENCYCLIDINE SCREEN,URINE NEGATIVE (NEGATIVE)
[2021-11-14] MEDS: FAMOTIDINE 20MG TAB PO SCH (20:47)
[2021-11-14 22:45] VITALS: BP 103/75
[2021-11-15 00:06] VITALS: BP 102/75
[2021-11-15 03:06] VITALS: BP 108/81
[2021-11-15 04:12] LABS: BASOPHILS % (AUTO) 0.4 % (0.0-5.0); EOSINOPHILS % (AUTO) 1.3 % (0.0-8.0); HEMATOCRIT 34.1 % (42-54); LYMPHOCYTES % (AUTO) 15.2 % (21.0-51.0); MEAN CORPUSCULAR HEMOGLOBIN 28.6 pg (27.0-33.0); MEAN CORPUSCULAR HGB CONC 32.3 g/dL (32.0-36.0); MEAN CORPUSCULAR VOLUME 88.8 fL (79-99); MONOCYTES % (AUTO) 10.1 % (3.0-13.0); NEUTROPHILS % (AUTO) 72.6 % (40.0-77.0); PLATELET COUNT (AUTO) 220 K/uL (130-400); RED BLOOD CELL COUNT(AUTO) 3.84 MIL/uL (4.50-6.20); RED CELL DISTRIBUTION WIDTH 13.8 % (11.0-15.5); WHITE BLOOD COUNT (AUTO) 7.4 K/uL (4.8-10.8)
[2021-11-15 04:24] LABS: CREATININE 1.3 mg/dL (0.5-1.5); MAGNESIUM 1.9 mg/dL (1.80-2.40); PHOSPHORUS 3.2 mg/dL (2.5-4.9); POTASSIUM 3.4 mmol/L (3.5-5.1)
[2021-11-15 08:30] VITALS: BP 129/89
[2021-11-15] MEDS: ENOXAPARIN SODIUM 30 MG/0.3 ML SQ SCH (08:35)
[2021-11-15] MEDS: FUROSEMIDE 40MG VIAL IVP SCH ×2 (08:35→20:48)
[2021-11-15] MEDS ORDERED: METOLAZONE 2.5 MG TABLET PO PRN (11:00)
[2021-11-15 12:28] VITALS: BP 125/67
[2021-11-15 16:00] VITALS: BP 125/87
[2021-11-15 19:06] VITALS: BP 107/75
[2021-11-15] MEDS: FAMOTIDINE 20MG TAB PO SCH (20:47)
[2021-11-16 00:06] VITALS: BP 109/84
[2021-11-16 03:09] VITALS: BP 109/82
[2021-11-16 04:12] LABS: BASOPHILS % (AUTO) 0.3 % (0.0-5.0); EOSINOPHILS % (AUTO) 1.2 % (0.0-8.0); HEMATOCRIT 34.6 % (42-54); MEAN CORPUSCULAR HEMOGLOBIN 29.5 pg (27.0-33.0); MEAN CORPUSCULAR HGB CONC 32.9 g/dL (32.0-36.0); MEAN CORPUSCULAR VOLUME 89.4 fL (79-99); MONOCYTES % (AUTO) 6.8 % (3.0-13.0); NEUTROPHILS % (AUTO) 78.3 % (40.0-77.0); PLATELET COUNT (AUTO) 224 K/uL (130-400); RED BLOOD CELL COUNT(AUTO) 3.87 MIL/uL (4.50-6.20); WHITE BLOOD COUNT (AUTO) 7.4 K/uL (4.8-10.8)
[2021-11-16 04:37] LABS: ALBUMIN 2.8 g/dL (3.5-5.0); BILIRUBIN,TOTAL 0.7 mg/dL (0.2-1.0); CREATININE 1.3 mg/dL (0.5-1.5); POTASSIUM 3.4 mmol/L (3.5-5.1); TOTAL PROTEIN, SERUM 7.3 g/dL (6.0-8.3)
[2021-11-16] MEDS ORDERED: POTASSIUM CHLORIDE 10MEQ SR TAB PO SCH (05:30)
[2021-11-16 07:00] VITALS: BP 111/82
[2021-11-16] MEDS: ENOXAPARIN SODIUM 30 MG/0.3 ML SQ SCH (08:40)
[2021-11-16] MEDS: FUROSEMIDE 40MG VIAL IVP SCH (08:40)
[2021-11-16] MEDS ORDERED: SPIRONOLACTONE 25 MG TAB PO SCH (09:00)
[2021-11-16] MEDS ORDERED: LISINOPRIL 5 MG TABLET PO SCH (09:00)
[2021-11-16] MEDS ORDERED: FURO20TA6 PO (09:02)
== END 2021-11-16 11:21 | disposition home or self-care (01) | DRG 291 ==
LOC: EDH 14:35 → EDHIP 14:36 → UNDOADMIN 19:38 → EDHIP 19:38 → 2DH 23:04
PROVIDERS: ADMIT Hospitalist; ATTEND Hospitalist
DX: I13.0 Hypertensive heart and chronic kidney disease with heart failure and stage 1 through stage 4 chronic kidney disease, or unspecified chronic kidney disease (principal); I50.43 Acute on chronic combined systolic (congestive) and diastolic (congestive) heart failure; N17.9 Acute kidney failure, unspecified; E87.6 Hypokalemia; N18.30 Chronic kidney disease, stage 3 unspecified; K74.60 Unspecified cirrhosis of liver; E11.22 Type 2 diabetes mellitus with diabetic chronic kidney disease; I42.0 Dilated cardiomyopathy; I49.3 Ventricular premature depolarization; I25.110 Atherosclerotic heart disease of native coronary artery with unstable angina pectoris; I25.2 Old myocardial infarction; Z87.891 Personal history of nicotine dependence; Z91.19 Patient's noncompliance with other medical treatment and regimen; Z95.5 Presence of coronary angioplasty implant and graft
CPT/HCPCS: 36415; 71045; 80048; 80053; 80305; 81003; 82330; 83735; 83880; 84100; 84132; 84484; 85025; 85378; 85610; 85730; 93005; 93970; G0378; J1650; J1940

== ENCOUNTER 2021-12-01 05:22 | Emergency (ER) | payer OTHER ==
[~2021-12-01] VITALS: Ht 165.1 cm; Wt 59.0 kg
[~2021-12-01 05:22] MED LIST changes: -DICY20TA2 PO; +FURO20TA6 PO; -FURO40TA7 PO; -POLY17PO4 PO
[2021-12-01 06:07] LABS: APPEARANCE,URINE Clear (CLEAR); BASOPHILS % (AUTO) 0.6 % (0.0-5.0); BILIRUBIN,URINE Negative (NEGATIVE); COLOR,URINE Yellow (YELLOW); EOSINOPHILS % (AUTO) 1.8 % (0.0-8.0); GLUCOSE, URINE (UA) Negative (NEGATIVE); HEMATOCRIT 41.1 % (42-54); KETONES,URINE Negative (NEGATIVE); LEUKOCYTE ESTERASE ,URINE Negative (NEGATIVE); LYMPHOCYTES % (AUTO) 8.7 % (21.0-51.0); MEAN CORPUSCULAR HEMOGLOBIN 27.5 pg (27.0-33.0); MEAN CORPUSCULAR HGB CONC 30.4 g/dL (32.0-36.0); MEAN CORPUSCULAR VOLUME 90.3 fL (79-99); MONOCYTES % (AUTO) 6.7 % (3.0-13.0); NEUTROPHILS % (AUTO) 81.6 % (40.0-77.0); NITRATE,URINE Negative (NEGATIVE); OCCULT BLOOD,URINE Negative (NEGATIVE); PLATELET COUNT (AUTO) 249 K/uL (130-400); PROTEIN,URINE Negative (NEGATIVE); RED BLOOD CELL COUNT(AUTO) 4.55 MIL/uL (4.50-6.20); RED CELL DISTRIBUTION WIDTH 14.3 % (11.0-15.5); WHITE BLOOD COUNT (AUTO) 11.4 K/uL (4.8-10.8)
[2021-12-01 06:13] LABS: CREATININE 1.2 mg/dL (0.5-1.5); POTASSIUM 3.9 mmol/L (3.5-5.1)
[2021-12-01 06:20] LABS: ALBUMIN 3.4 g/dL (3.5-5.0); BILIRUBIN,TOTAL 0.7 mg/dL (0.2-1.0); TOTAL PROTEIN, SERUM 8.6 g/dL (6.0-8.3)
[2021-12-01] MEDS ORDERED: PANT40TA55 PO (06:53)
[2021-12-01 06:55] VITALS: BP 101/74
[2021-12-01] MEDS ORDERED: 0.9%NACL 1000ML 1,000 ML IV SCH (07:00)
[2021-12-01] MEDS ORDERED: LIDOCAINE HCL 2% VISCOUS 15 ML UDCUP PO SCH (07:00)
[2021-12-01] MEDS ORDERED: DICYCLOMINE HCL 10 MG/5 ML ML PO SCH (07:00)
[2021-12-01] MEDS ORDERED: MAG/ALUM/SIMETH 30 ML UDCUP PO SCH (07:00)
== END 2021-12-01 06:58 | disposition home or self-care (01) ==
LOC: EDH 05:22
DX: K29.70 Gastritis, unspecified, without bleeding (principal); F41.9 Anxiety disorder, unspecified; I11.0 Hypertensive heart disease with heart failure; I50.9 Heart failure, unspecified; F32.A Depression, unspecified; K21.9 Gastro-esophageal reflux disease without esophagitis; I25.2 Old myocardial infarction; Z79.899 Other long term (current) drug therapy; Z98.890 Other specified postprocedural states
CPT/HCPCS: 36415; 80053; 81003; 84484; 85025; 93005

== ENCOUNTER 2021-12-13 04:59 | Emergency (ER) | payer OTHER ==
[~2021-12-13] VITALS: Ht 165.1 cm; Wt 63.0 kg
[~2021-12-13 04:59] MED LIST changes: +PANT40TA55 PO
[2021-12-13 05:43] LABS: BASOPHILS % (AUTO) 0.5 % (0.0-5.0); EOSINOPHILS % (AUTO) 3.2 % (0.0-8.0); HEMATOCRIT 36.2 % (42-54); LYMPHOCYTES % (AUTO) 14.3 % (21.0-51.0); MEAN CORPUSCULAR HEMOGLOBIN 27.4 pg (27.0-33.0); MEAN CORPUSCULAR VOLUME 85.6 fL (79-99); MONOCYTES % (AUTO) 9.4 % (3.0-13.0); NEUTROPHILS % (AUTO) 71.7 % (40.0-77.0); PLATELET COUNT (AUTO) 249 K/uL (130-400); RED BLOOD CELL COUNT(AUTO) 4.23 MIL/uL (4.50-6.20)
[2021-12-13 05:48] LABS: ALBUMIN 3.3 g/dL (3.5-5.0); CREATININE 1.2 mg/dL (0.5-1.5); POTASSIUM 3.6 mmol/L (3.5-5.1); TOTAL PROTEIN, SERUM 7.8 g/dL (6.0-8.3)
[2021-12-13 06:00] VITALS: BP 129/93
[2021-12-13] MEDS ORDERED: FUROSEMIDE 40MG VIAL IV ONE (06:00)
[2021-12-13] MEDS ORDERED: FURO40TA5 PO (06:54)
[2021-12-13] MEDS ORDERED: LISI20TA24 PO (06:54)
== END 2021-12-13 07:24 | disposition home or self-care (01) ==
LOC: EDH 04:59
DX: R07.89 Other chest pain (principal); T50.Z95A Adverse effect of other vaccines and biological substances, initial encounter; I25.10 Atherosclerotic heart disease of native coronary artery without angina pectoris; I50.9 Heart failure, unspecified; Z79.899 Other long term (current) drug therapy; F17.210 Nicotine dependence, cigarettes, uncomplicated; Z95.5 Presence of coronary angioplasty implant and graft; Y92.89 Other specified places as the place of occurrence of the external cause
CPT/HCPCS: 36415; 71045; 80053; 83880; 84484; 85025; 93005; 96374; 99285; J1940

== ENCOUNTER 2021-12-16 01:23 | Observation (INO) | payer OTHER ==
[~2021-12-16] VITALS: Ht 165.1 cm; Wt 59.9 kg
[~2021-12-16 01:23] MED LIST changes: +FURO40TA5 PO; +LISI20TA24 PO
[2021-12-16 03:17] LABS: BASOPHILS % (AUTO) 0.5 % (0.0-5.0); EOSINOPHILS % (AUTO) 2.3 % (0.0-8.0); HEMATOCRIT 35.8 % (42-54); MEAN CORPUSCULAR HEMOGLOBIN 26.8 pg (27.0-33.0); MEAN CORPUSCULAR HGB CONC 31.8 g/dL (32.0-36.0); MEAN CORPUSCULAR VOLUME 84.2 fL (79-99); NEUTROPHILS % (AUTO) 66.5 % (40.0-77.0); NUCLEATED RED BLOOD CELLS 0.3 % (0.0-0.19); PLATELET COUNT (AUTO) 291 K/uL (130-400); RED BLOOD CELL COUNT(AUTO) 4.25 MIL/uL (4.50-6.20); RED CELL DISTRIBUTION WIDTH 15.2 % (11.0-15.5); WHITE BLOOD COUNT (AUTO) 7.5 K/uL (4.8-10.8)
[2021-12-16 03:20] LABS: CREATININE 1.2 mg/dL (0.5-1.5); POTASSIUM 3.1 mmol/L (3.5-5.1)
[2021-12-16 03:25] LABS: BILIRUBIN,TOTAL 1.1 mg/dL (0.2-1.0); TOTAL PROTEIN, SERUM 7.6 g/dL (6.0-8.3)
[2021-12-16 04:29] LABS: ABG BASE EXCESS -6.6 mmol/L (-2.0-3.0); ABG HCO3 15.2 mmol/L (21.0-28.0); ABG PCO2 23 mmHg (35-48)
[2021-12-16] MEDS ORDERED: PANTOPRAZOLE 40 MG/VIAL IVP ONE (04:30)
[2021-12-16] MEDS ORDERED: MAG/ALUM/SIMETH 30 ML UDCUP PO ONE (04:30)
[2021-12-16] MEDS ORDERED: NITROGLYCERIN 1GM OINT 1 INCH/1GM TD ONE ×2 (04:30→05:43)
[2021-12-16] MEDS ORDERED: ASPIRIN 325MG TAB PO ONE (04:30)
[2021-12-16 05:03] LABS: INR 1.62 (0.85-1.15); PROTHROMBIN TIME 17.2 SEC (9.6-11.6)
[2021-12-16 05:04] LABS: PARTIAL THROMBOPLASTIN TIME 29.4 SEC (26.3-35.5)
[2021-12-16] MEDS ORDERED: FUROSEMIDE 20MG VIAL IV ONE (05:30)
[2021-12-16] MEDS ORDERED: ASPIRIN 325MG TAB ONE (05:42)
[2021-12-16 06:38] LABS: APPEARANCE,URINE Clear (CLEAR); BILIRUBIN,URINE Negative (NEGATIVE); COLOR,URINE Yellow (YELLOW); GLUCOSE, URINE (UA) Negative (NEGATIVE); KETONES,URINE Negative (NEGATIVE); LEUKOCYTE ESTERASE ,URINE Negative (NEGATIVE); NITRATE,URINE Negative (NEGATIVE); OCCULT BLOOD,URINE Negative (NEGATIVE); PH,URINE 5.5 (5.0-8.0); PROTEIN,URINE POS 1+ mg/dL (NEGATIVE)
[2021-12-16 06:39] LABS: AMPHET/METH SCREEN,URINE NEGATIVE (NEGATIVE); BARBITURATE SCREEN, URINE NEGATIVE (NEGATIVE); BENZODIAZEPINES SCREEN,URINE NEGATIVE (NEGATIVE); CANNABINOID SCREEN,URINE NEGATIVE (NEGATIVE); COCAINE SCREEN,URINE NEGATIVE (NEGATIVE); OPIATE SCREEN,URINE NEGATIVE (NEGATIVE); PHENCYCLIDINE SCREEN,URINE NEGATIVE (NEGATIVE)
[2021-12-16 07:21] LABS: BACTERIA,URINE None Seen /HPF (None Seen); RBC,URINE 0-1 /HPF (0-1); WBC,URINE 0-1 /HPF (0-1)
[2021-12-16] MEDS ORDERED: ACETAMINOPHEN 325 MG TAB PO PRN ×2 (07:30)
[2021-12-16] MEDS ORDERED: ONDANSETRON 4MG INJ IV PRN (07:30)
[2021-12-16] MEDS: NITROGLYCERIN 1GM OINT 1 INCH/1GM TD SCH ×3 (08:10→23:30)
[2021-12-16] MEDS: CARVEDILOL 3.125 MG TABLET PO SCH ×2 (08:35→20:37)
[2021-12-16] MEDS: ENOXAPARIN SODIUM 40 MG/0.4 ML SYRINGE SQ SCH (08:35)
[2021-12-16] MEDS: FUROSEMIDE 40MG VIAL IVP SCH ×3 (08:35→20:37)
[2021-12-16] MEDS: SPIRONOLACTONE 25 MG TAB PO SCH (08:35)
[2021-12-16] MEDS: FAMOTIDINE 20MG TAB PO SCH ×2 (08:35→20:37)
[2021-12-16 08:43] LABS: % IRON SATURATION 7.2 % (30-44)
[2021-12-16 08:51] LABS: CREATINE KINASE, TOTAL 48 U/L (21-232); MYOGLOBIN 48 ng/mL (10-92); THYROID STIMULATING HORMONE 0.97 uIU/mL (0.36-3.74)
[2021-12-16] MEDS: AcetaZOLAMIDE 250 MG TAB PO SCH ×2 (08:53→20:37)
[2021-12-16] MEDS ORDERED: LACTULOSE 20 GM/30 ML UDCUP PR SCH (20:30)
[2021-12-17 06:58] LABS: HEMATOCRIT 35.9 % (42-54); MEAN CORPUSCULAR HEMOGLOBIN 26.8 pg (27.0-33.0); MEAN CORPUSCULAR HGB CONC 31.8 g/dL (32.0-36.0); MEAN CORPUSCULAR VOLUME 84.5 fL (79-99); RED BLOOD CELL COUNT(AUTO) 4.25 MIL/uL (4.50-6.20); RED CELL DISTRIBUTION WIDTH 15.2 % (11.0-15.5); WHITE BLOOD COUNT (AUTO) 8.3 K/uL (4.8-10.8)
[2021-12-17 07:07] LABS: CREATININE 1.9 mg/dL (0.5-1.5); POTASSIUM 3.1 mmol/L (3.5-5.1)
[2021-12-17] MEDS: NITROGLYCERIN 1GM OINT 1 INCH/1GM TD SCH (07:30)
[2021-12-17] MEDS: SPIRONOLACTONE 25 MG TAB PO SCH (08:54)
[2021-12-17] MEDS: CARVEDILOL 3.125 MG TABLET PO SCH (08:55)
[2021-12-17] MEDS: FAMOTIDINE 20MG TAB PO SCH (08:55)
[2021-12-17] MEDS: ENOXAPARIN SODIUM 40 MG/0.4 ML SYRINGE SQ SCH (08:55)
[2021-12-17] MEDS ORDERED: CARV3.1262 PO (12:39)
[2021-12-17 14:42] VITALS: BP 125/65
== END 2021-12-17 14:22 | disposition home or self-care (01) ==
LOC: EDH 01:23 → EDHIP 07:10
PROVIDERS: ADMIT Internal Medicine; ATTEND Internal Medicine
DX: J96.91 Respiratory failure, unspecified with hypoxia (principal); E87.70 Fluid overload, unspecified; I11.0 Hypertensive heart disease with heart failure; I50.41 Acute combined systolic (congestive) and diastolic (congestive) heart failure; D50.8 Other iron deficiency anemias; I34.0 Nonrheumatic mitral (valve) insufficiency; I37.1 Nonrheumatic pulmonary valve insufficiency; R07.89 Other chest pain; I42.0 Dilated cardiomyopathy; F20.9 Schizophrenia, unspecified; F31.9 Bipolar disorder, unspecified; K70.30 Alcoholic cirrhosis of liver without ascites; F14.10 Cocaine abuse, uncomplicated; F17.200 Nicotine dependence, unspecified, uncomplicated; Z59.7 Insufficient social insurance and welfare support; Z91.19 Patient's noncompliance with other medical treatment and regimen; Z79.899 Other long term (current) drug therapy; Z95.5 Presence of coronary angioplasty implant and graft; Z95.1 Presence of aortocoronary bypass graft; Z98.890 Other specified postprocedural states
CPT/HCPCS: 36415 ×2; 36600; 71045; 80048; 80053; 80305; 81001; 82270; 82550 ×3; 82607; 82728; 82746; 82803; 83540; 83550; 83735; 83874 ×3; 83880 ×2; 84145; 84443; 84484 ×4; 85025; 85027; 85610; 85730; 93005 ×4; 93306; 93356; 96372 ×2; 96374; 96375 ×2; 96376 ×2; 99285; G0378 ×30; J1650 ×2; J1940 ×4; J2405

== ENCOUNTER 2021-12-18 09:53 | Emergency (ER) | payer OTHER ==
[~2021-12-18] VITALS: Ht 165.1 cm; Wt 59.0 kg
[~2021-12-18 09:53] MED LIST changes: +CARV3.1262 PO; -FAMO-136 PO; -FURO20TA6 PO; -LISI20TA24 PO; -METO5TAB7 PO
[2021-12-18] MEDS ORDERED: PANTOPRAZOLE 40 MG/VIAL IVP ONE (10:00)
[2021-12-18 11:16] VITALS: BP 117/92
== END 2021-12-18 12:14 | disposition home or self-care (01) ==
LOC: EDH 09:53
DX: K59.00 Constipation, unspecified (principal); K74.60 Unspecified cirrhosis of liver; I10 Essential (primary) hypertension; F17.200 Nicotine dependence, unspecified, uncomplicated; Z79.899 Other long term (current) drug therapy; Z95.5 Presence of coronary angioplasty implant and graft
CPT/HCPCS: 74176; 76705; 93005; 96374; 99284; C9113

== ENCOUNTER 2022-01-04 19:15 | Emergency (ER) | payer OTHER ==
[~2022-01-04] VITALS: Ht 165.1 cm; Wt 60.3 kg
[2022-01-04] MEDS ORDERED: IPRATROPIUM/ALBUTEROL SULFATE 3 ML SOLUTION IH ONE (20:00)
[2022-01-04 20:15] LABS: BASOPHILS % (AUTO) 0.3 % (0.0-5.0); EOSINOPHILS % (AUTO) 1.1 % (0.0-8.0); LYMPHOCYTES % (AUTO) 11.6 % (21.0-51.0); MEAN CORPUSCULAR HEMOGLOBIN 25.8 pg (27.0-33.0); MEAN CORPUSCULAR HGB CONC 31.8 g/dL (32.0-36.0); MEAN CORPUSCULAR VOLUME 81.3 fL (79-99); MONOCYTES % (AUTO) 8.4 % (3.0-13.0); NEUTROPHILS % (AUTO) 78.3 % (40.0-77.0); PLATELET COUNT (AUTO) 202 K/uL (130-400); RED BLOOD CELL COUNT(AUTO) 4.92 MIL/uL (4.50-6.20); RED CELL DISTRIBUTION WIDTH 17.3 % (11.0-15.5); WHITE BLOOD COUNT (AUTO) 8.7 K/uL (4.8-10.8)
[2022-01-04 20:40] LABS: B-TYPE NATRIURETIC PEPTIDE 2760 pg/mL (0-100)
[2022-01-04] MEDS ORDERED: FUROSEMIDE 40MG VIAL IV ONE (22:00)
[2022-01-04 22:11] LABS: CREATININE 1.1 mg/dL (0.5-1.5); POTASSIUM 4.2 mmol/L (3.5-5.1)
[2022-01-04 22:17] LABS: ALBUMIN 3.4 g/dL (3.5-5.0); BILIRUBIN,TOTAL 1.6 mg/dL (0.2-1.0); TOTAL PROTEIN, SERUM 8.4 g/dL (6.0-8.3)
[2022-01-04] MEDS ORDERED: ALBU8.5H8 IH (22:30)
[2022-01-04] MEDS ORDERED: FURO-152 PO (22:30)
[2022-01-04 22:34] VITALS: BP 129/81
== END 2022-01-04 22:44 | disposition home or self-care (01) ==
LOC: EDH 19:15
DX: I11.0 Hypertensive heart disease with heart failure (principal); I50.9 Heart failure, unspecified; K74.60 Unspecified cirrhosis of liver; R06.00 Dyspnea, unspecified; Z95.5 Presence of coronary angioplasty implant and graft; Z79.899 Other long term (current) drug therapy; F17.200 Nicotine dependence, unspecified, uncomplicated
CPT/HCPCS: 36415; 71045; 80053; 82140; 83880; 84484; 85025; 93005; 94640; 99285; J1940

== ENCOUNTER 2022-01-07 18:49 | Emergency (ER) | payer OTHER ==
[~2022-01-07] VITALS: Ht 165.1 cm; Wt 60.3 kg
[~2022-01-07 18:49] MED LIST changes: +ALBU8.5H8 IH; +FURO-152 PO
[2022-01-07 19:18] LABS: POTASSIUM 3.9 mmol/L (3.5-5.1)
[2022-01-07 19:19] LABS: BASOPHILS % (AUTO) 0.4 % (0.0-5.0); EOSINOPHILS % (AUTO) 0.6 % (0.0-8.0); HEMATOCRIT 34.9 % (42-54); LYMPHOCYTES % (AUTO) 10.1 % (21.0-51.0); MEAN CORPUSCULAR HEMOGLOBIN 25.6 pg (27.0-33.0); MEAN CORPUSCULAR HGB CONC 31.5 g/dL (32.0-36.0); MEAN CORPUSCULAR VOLUME 81.2 fL (79-99); MONOCYTES % (AUTO) 10.8 % (3.0-13.0); NEUTROPHILS % (AUTO) 77.6 % (40.0-77.0); PLATELET COUNT (AUTO) 233 K/uL (130-400); RED CELL DISTRIBUTION WIDTH 17.3 % (11.0-15.5); WHITE BLOOD COUNT (AUTO) 8.2 K/uL (4.8-10.8)
[2022-01-07 19:23] LABS: ALBUMIN 2.9 g/dL (3.5-5.0); BILIRUBIN,TOTAL 1.1 mg/dL (0.2-1.0); TOTAL PROTEIN, SERUM 7.4 g/dL (6.0-8.3)
[2022-01-07 19:36] LABS: INR 1.32 (0.85-1.15); PROTHROMBIN TIME 14.2 SEC (9.6-11.6)
[2022-01-07 19:50] LABS: B-TYPE NATRIURETIC PEPTIDE 2380 pg/mL (0-100)
[2022-01-07] MEDS ORDERED: FUROSEMIDE 40MG VIAL IV ONE (22:30)
[2022-01-07] MEDS ORDERED: FURO40TA5 PO (22:51)
[2022-01-07 23:02] VITALS: BP 121/84
== END 2022-01-07 23:06 | disposition home or self-care (01) ==
LOC: EDH 18:49
DX: I11.0 Hypertensive heart disease with heart failure (principal); I50.9 Heart failure, unspecified; R07.89 Other chest pain; F41.9 Anxiety disorder, unspecified; F17.210 Nicotine dependence, cigarettes, uncomplicated; Z98.890 Other specified postprocedural states; Z79.899 Other long term (current) drug therapy
CPT/HCPCS: 36415; 71045; 80053; 83880; 84484; 85025; 85610; 93005; 96374; 99285; J1940